=== PATIENT | male | born 1960 | race African-American/Black ===

== ENCOUNTER 2016-10-12 16:46 | Emergency (ER) | payer MEDICARE, MEDICAID ==
--- NOTE | 2016-10-12 18:56 | ER Document Report ---
ED General - General Chief Complaint: Knee Pain Stated Complaint: WEAKNESS Notes: Patient is a 56-year-old male with past medical history of end-stage renal disease with dialysis dependence who presents with several months of progressively worsening generalized weakness and increasingly frequent falls. Patient is a very poor historian but his sister at bedside states that his falls have become almost daily at this point for the last 3-4 months. Patient denies any focal weakness or numbness. Denies any focal pain. Nothing improves or worsens the symptoms. He has not seen his primary care physician regarding these concerns. His family the bedside admits that this is been a slow, progressive decline in the are considering placing him in a penitentiary facility. TRAVEL OUTSIDE OF THE [place] IN LAST 30 DAYS: No - Related Data Allergies/Adverse Reactions: No Known Allergies Allergy (Verified 08/24/16 15:42) Past Medical History - General Information source: Patient - Social History Smoking Status: Former Smoker Frequency of alcohol use: None Drug Abuse: None Lives with: Family Family History: Arthritis, CAD, CVA, DM, Hyperlipidemia, Hypertension, Malignancy - Past Medical History Cardiac Medical History: Reports: Hx Hypertension Endocrine Medical History: Reports: Hx Diabetes Mellitus Type 1, Hx Diabetes Mellitus Type 2 Renal/ Medical History: Reports: Hx End Stage Renal Disease, Hx Hemodialysis, Hx Renal Insufficiency Psychiatric Medical History: Reports: Hx Dementia, Hx Depression Past Surgical History: Reports: Hx Appendectomy, Hx Tonsillectomy, Hx Vascular Surgery - dialysis fistula left - Immunizations Immunizations up to date: Yes Hx Diphtheria, Pertussis, Tetanus Vaccination: Yes Hx Pneumococcal Vaccination: 07/04/13 Review of Systems - Review of Systems Notes: Constitutional: Negative for fever. HENT: Negative for sore throat. Eyes: Negative for visual changes. Cardiovascular: Negative for chest pain. Respiratory: Negative for shortness of breath. Gastrointestinal: Negative for abdominal pain, vomiting or diarrhea. Genitourinary: Negative for dysuria. Musculoskeletal: Negative for back pain. Skin: Negative for rash. Neurological: Negative for headaches, weakness or numbness. 10 point ROS negative except as marked above and in HPI. Physical Exam - Vital signs Vitals: Temp Pulse Resp BP Pulse Ox 97.4 F 70 20 154/83 H 99 10/12/16 17:01 10/12/16 17:01 10/12/16 17:01 10/12/16 17:01 10/12/16 17:01 Interpretation: Hypertensive Notes: PHYSICAL EXAMINATION: GENERAL: Appears older than stated age but in no acute distress HEAD: Atraumatic, normocephalic. EYES: Pupils equal round and reactive to light, extraocular movements intact, sclera anicteric, conjunctiva are normal. ENT: nares patent, oropharynx clear without exudates. Moderately dry mucous membranes. NECK: Normal range of motion, supple without lymphadenopathy LUNGS: Breath sounds clear to auscultation bilaterally and equal. No wheezes rales or rhonchi. HEART: Regular rate and rhythm without murmurs ABDOMEN: Soft, nontender, normoactive bowel sounds. No guarding, no rebound. No masses appreciated. EXTREMITIES: Normal range of motion, no pitting or edema. No cyanosis. NEUROLOGICAL: Face symmetric. Tongue protrudes midline. Extraocular motions intact. Pupils are 2 mm and equally reactive. Normal speech, hesitant gait but able to walk with a 1 person assist. 5 out of 5 strength in both the distal and proximal upper and lower extremities bilaterally. Sensation is grossly intact throughout. Finger to nose testing normal. Pronator drift normal. PSYCH: Normal mood, normal affect. SKIN: Warm, Dry, normal turgor, no rashes or lesions noted. Course - Re-evaluation Re-evalutation: 10/12/16 18:55 Presentation and an overall well-appearing patient in no acute distress who complains of generalized weakness. At time of evaluation, patient's vitals are within normal limits and they are denying any additional acute complaints. Physical examination without focal findings. No neurologic deficits. They deny any chest pain, shortness of breath, nausea, vomiting, or diarrhea. No fever. Basic laboratories are unremarkable. Low clinical suspicion for ACS, occult pneumonia, acute intra-abdominal pathology, stroke, or transient ischemic attack based on clinical history, examination, and laboratories. They have tolerated oral intake without difficulty. I have discussed the importance of close outpatient follow-up as well as the need to return to emergency room immediately should they have any new or worsening symptoms. The patient and surrogate's are in agreement with this plan and verbalized indications for return to emergency department. - Vital Signs Vital signs: Temp Pulse Resp BP Pulse Ox 97.6 F 70 19 136/113 H 99 10/12/16 21:14 10/12/16 17:01 10/12/16 21:01 10/12/16 21:01 10/12/16 21:01 - Laboratory Result Diagrams: 10/12/16 19:40 10/12/16 19:40 Laboratory results interpreted by me: 10/12/16 10/12/16 19:40 19:40 WBC 11.8 H RBC 3.62 L Hgb 11.4 L Hct 34.8 L RDW 15.7 H Seg Neutrophils % 81.1 H Lymphocytes % 11.9 L Absolute Neutrophils 9.6 H Sodium 131.7 L Potassium 3.4 L Chloride 97 L Carbon Dioxide 18 L BUN 21 H Creatinine 4.48 H Est GFR ( Amer) 16 L Est GFR (Non-Af Amer) 14 L Glucose 385 H Discharge - Discharge Clinical Impression: Frequent falls, Generalized weakness Condition: Good Disposition: HOME, SELF-CARE Additional Instructions: You need to follow-up with your primary care physician to begin discussing options for additional assistance given her progressive weakness and frequent falls. A referral to physical therapy would be appropriate. You may also want to consider nursing care options. These return if he developed frequent vomiting, focal weakness, numbness, chest pain, shortness of breath, or any other symptoms that are concerning to you.
[2016-10-12 19:54] LABS: ABSOLUTE EOSINOPHILS # (AUTO) 0.1 10^3/uL (0.0-0.6); ABSOLUTE LYMPHOCYTES (AUTO) 1.4 10^3/uL (0.5-4.7); ABSOLUTE MONOCYTES (AUTO) 0.7 10^3/uL (0.1-1.4); ABSOLUTE NEUT (AUTO) 9.6 10^3/uL (1.7-8.2); BASOPHILS % (AUTO) 0.3 % (0-2); HEMATOCRIT 34.8 % (37.9-51.0); HEMOGLOBIN 11.4 g/dL (13.5-17.0); HGB HCT DIFFERENCE -0.6; LYMPHOCYTES % (AUTO) 11.9 % (13-45); MEAN CORPUSCULAR HEMOGLOBIN 31.5 pg (27.0-33.4); MEAN CORPUSCULAR HGB CONC 32.8 g/dL (32.0-36.0); MEAN CORPUSCULAR VOLUME 96 fl (80-97); MONOCYTES % (AUTO) 5.7 % (3-13); RED BLOOD COUNT 3.62 10^6/uL (4.35-5.55); RED CELL DISTRIBUTION WIDTH 15.7 % (11.5-14.0); SEGMENTED NEUTROPHILS % (AUTO) 81.1 % (42-78); WHITE BLOOD COUNT 11.8 10^3/uL (4.0-10.5)
[2016-10-12 20:10] LABS: ANION GAP 17 (5-19); BLOOD UREA NITROGEN 21 mg/dL (7-20); CALCIUM 9.2 mg/dL (8.4-10.2); CARBON DIOXIDE 18 mmol/L (22-30); CHLORIDE 97 mmol/L (98-107); CREATININE RESULT 4.48 mg/dL (0.52-1.25); GLUCOSE 385 mg/dL (75-110); POTASSIUM 3.4 mmol/L (3.6-5.0); SODIUM 131.7 mmol/L (137-145)
[2016-10-12 21:24] VITALS: BP 136/113
== END 2016-10-12 21:35 | disposition home or self-care (01) ==
LOC: ER 16:46
DX: R53.1 Weakness (principal); E11.22 Type 2 diabetes mellitus with diabetic chronic kidney disease; I12.0 Hypertensive chronic kidney disease with stage 5 chronic kidney disease or end stage renal disease; N18.6 End stage renal disease; Z99.2 Dependence on renal dialysis; Z91.81 History of falling
CPT/HCPCS: 36415; 80048; 85025; 99285

== ENCOUNTER 2016-10-31 19:53 | Emergency (ER) | payer MEDICARE, MEDICAID ==
--- NOTE | 2016-10-31 20:57 | ER Document Report ---
ED Medical Screen (RME) - General Stated Complaint: FALL/HEAD PAIN Time seen by provider: 20:52 Mode of Arrival: Ambulatory Information source: Patient Notes: Patient states his legs have been giving out on him recently. He was in the bathroom and fell back against the wall, hit the back side of his head, slipped down to the floor landing on his left hip. Denies loss of consciousness, no vomiting or nausea. Family member with patient states he had dialysis today, has a history of diabetes, hypertension, denies heart problems. TRAVEL OUTSIDE OF THE [place] IN LAST 30 DAYS: No - Related Data Allergies/Adverse Reactions: No Known Allergies Allergy (Verified 08/24/16 15:42) Past Medical History - Past Medical History Cardiac Medical History: Reports: Hx Hypertension Endocrine Medical History: Reports: Hx Diabetes Mellitus Type 1, Hx Diabetes Mellitus Type 2 Renal/ Medical History: Reports: Hx End Stage Renal Disease, Hx Hemodialysis, Hx Renal Insufficiency Psychiatric Medical History: Reports: Hx Dementia, Hx Depression Past Surgical History: Reports: Hx Appendectomy, Hx Tonsillectomy, Hx Vascular Surgery - dialysis fistula left - Immunizations Immunizations up to date: Yes Hx Diphtheria, Pertussis, Tetanus Vaccination: Yes Physical Exam - Vital signs Vitals: Temp Pulse Resp BP Pulse Ox 97.9 F 74 18 173/67 H 99 10/31/16 20:46 10/31/16 20:46 10/31/16 20:46 10/31/16 20:46 10/31/16 20:46 - General General appearance: Appears well, Alert Notes: No hematoma or bruising noted to occipital area of head. Mild tenderness on palpation. - Cardiovascular Rhythm: Regular Heart sounds: Normal auscultation Course - Vital Signs Vital signs: Temp Pulse Resp BP Pulse Ox 97.9 F 74 18 173/67 H 99 10/31/16 20:46 10/31/16 20:46 10/31/16 20:46 10/31/16 20:46 10/31/16 20:46
[2016-10-31 21:29] LABS: ABSOLUTE EOSINOPHILS # (AUTO) 0.1 10^3/uL (0.0-0.6); ABSOLUTE MONOCYTES (AUTO) 0.4 10^3/uL (0.1-1.4)
[2016-10-31 21:39] LABS: ABSOLUTE LYMPHOCYTES (AUTO) 0.8 10^3/uL (0.5-4.7); ABSOLUTE NEUT (AUTO) 6.4 10^3/uL (1.7-8.2); BASOPHILS % (AUTO) 0.3 % (0-2); EOSINOPHILS % (AUTO) 0.9 % (0-6); HEMATOCRIT 34.3 % (37.9-51.0); HEMOGLOBIN 11.3 g/dL (13.5-17.0); HGB HCT DIFFERENCE -0.4; LYMPHOCYTES % (AUTO) 10.4 % (13-45); MEAN CORPUSCULAR HGB CONC 32.9 g/dL (32.0-36.0); RED BLOOD COUNT 3.41 10^6/uL (4.35-5.55); RED CELL DISTRIBUTION WIDTH 15.2 % (11.5-14.0); SEGMENTED NEUTROPHILS % (AUTO) 83.4 % (42-78); WHITE BLOOD COUNT 7.6 10^3/uL (4.0-10.5)
[2016-10-31 21:53] LABS: ALANINE AMINOTRANSFERASE 395 U/L (21-72); ALBUMIN 4.2 g/dL (3.5-5.0); ANION GAP 19 (5-19); ASPARTATE AMINO TRANSFERASE 253 U/L (17-59); BILIRUBIN,TOTAL 0.9 mg/dL (0.2-1.3); BLOOD UREA NITROGEN 36 mg/dL (7-20); CALCIUM 9.6 mg/dL (8.4-10.2); CARBON DIOXIDE 21 mmol/L (22-30); CHLORIDE 96 mmol/L (98-107); CREATINE KINASE 254 U/L (55-170); SODIUM 135.5 mmol/L (137-145); TOTAL PROTEIN 7.4 g/dL (6.3-8.2)
[2016-10-31 22:09] LABS: ALKALINE PHOSPHATASE 1643 U/L (38-126)
[2016-10-31 22:10] LABS: MEAN CORPUSCULAR VOLUME 101 fl (80-97)
[2016-10-31 22:16] LABS: GLUCOSE 634 mg/dL (75-110)
[2016-10-31 22:25] LABS: CREATINE KINASE MB 4.11 ng/mL (<4.55)
[2016-10-31 22:30] LABS: TROPONIN I 0.072 ng/mL
[2016-10-31] MEDS ORDERED: INSULIN REG, HUMAN 100 UNIT/ML 3 ML VIAL (PYX) IV ONE (23:16)
[2016-10-31] MEDS ORDERED: NORMAL SALINE 1000 ML 500 ML IV ONE (23:16)
[2016-10-31] MEDS ORDERED: POTASSIUM CHLORIDE 10 MEQ TABLET.SA PO ONE ×2 (23:17→23:18)
[2016-10-31] MEDS ORDERED: POTASSI CL 20 MEQ/50 ML RIDER 50 ML IV ONE (23:17)
--- NOTE | 2016-10-31 23:21 | ER Document Report ---
ED General - General Chief Complaint: Fall Stated Complaint: FALL/HEAD PAIN Mode of Arrival: Ambulatory Information source: Patient Notes: This is a 56-year-old male with a history of end-stage renal disease on hemodialysis also with insulin-dependent diabetes who presents stating he has had frequent falls over the past few weeks at home. Today he states that he was in the bathroom when he slipped and fell backwards. He hit the back of his head on the floor. He also complains of left hip pain after the fall. Of note he is been admitted to this facility before after falls with similar presentation secondary to hyperglycemia and noncompliance. He currently denies complaints other than the fact that he is hungry. TRAVEL OUTSIDE OF THE [place] IN LAST 30 DAYS: No - Related Data Allergies/Adverse Reactions: No Known Allergies Allergy (Verified 08/24/16 15:42) Past Medical History - General Information source: Patient - Social History Smoking Status: Current Every Day Smoker Chew tobacco use (# tins/day): No Frequency of alcohol use: None Drug Abuse: None Family History: Arthritis, CAD, CVA, DM, Hyperlipidemia, Hypertension, Malignancy Patient has suicidal ideation: No Patient has homicidal ideation: No - Past Medical History Cardiac Medical History: Reports: Hx Hypertension Endocrine Medical History: Reports: Hx Diabetes Mellitus Type 1, Hx Diabetes Mellitus Type 2 Renal/ Medical History: Reports: Hx End Stage Renal Disease, Hx Hemodialysis, Hx Renal Insufficiency. Denies: Hx Peritoneal Dialysis Psychiatric Medical History: Reports: Hx Dementia, Hx Depression Past Surgical History: Reports: Hx Appendectomy, Hx Tonsillectomy, Hx Vascular Surgery - dialysis fistula left - Immunizations Immunizations up to date: Yes Hx Diphtheria, Pertussis, Tetanus Vaccination: Yes Hx Pneumococcal Vaccination: 07/04/13 Review of Systems - Review of Systems Constitutional: denies: Chills, Fever EENT: denies: Eye pain, Nose congestion, Difficulty swallowing Cardiovascular: denies: Chest pain, Palpitations Respiratory: No symptoms reported. denies: Cough, Short of breath Gastrointestinal: No symptoms reported. denies: Abdominal pain, Diarrhea, Nausea, Vomiting Genitourinary: No symptoms reported Musculoskeletal: See HPI Skin: No symptoms reported Neurological/Psychological: No symptoms reported Physical Exam - Vital signs Vitals: Temp Pulse Resp BP Pulse Ox 97.9 F 74 18 173/67 H 99 10/31/16 20:46 10/31/16 20:46 10/31/16 20:46 10/31/16 20:46 10/31/16 20:46 - General General appearance: Appears well, Alert In distress: None Notes: thin male, somewhat disheveled and appears older than stated age - HEENT Head: Normocephalic, Atraumatic Eyes: No: Scleral icterus Conjunctiva: Normal Extraocular movements intact: Yes - Respiratory Respiratory status: No respiratory distress. No: Retractions Breath sounds: Normal. 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 His repeat lab evaluation reveals significant improvement in his hyperglycemia. His potassium is stable at 3.5. At this time there is no indication for hospital admission. He will be discharged home and is scheduled for dialysis tomorrow. We discussed dietary modification for his diabetes as he has a history of noncompliance. He will follow up with his primary care physician. Strict return precautions were discussed. He is comfortable with this plan. - Vital Signs Vital signs: Temp Pulse Resp BP Pulse Ox 98.2 F 78 16 168/74 H 98 11/01/16 07:14 11/01/16 07:14 11/01/16 07:14 11/01/16 07:14 11/01/16 07:14 - Laboratory Result Diagrams: 10/31/16 19:05 11/01/16 03:54 Laboratory results interpreted by me: 10/31/16 10/31/16 11/01/16 19:05 19:05 03:54 RBC 3.41 L Hgb 11.3 L Hct 34.3 L MCV 101 H D RDW 15.2 H Seg Neutrophils % 83.4 H Lymphocytes % 10.4 L Sodium 135.5 L 136.1 L Potassium 3.0 L* 3.5 L Chloride 96 L Carbon Dioxide 21 L 21 L BUN 36 H 40 H Creatinine 5.80 H 5.87 H Est GFR ( Amer) 12 L 12 L Est GFR (Non-Af Amer) 10 L 10 L Glucose 634 H* 238 H AST 253 H ALT 395 H Alkaline Phosphatase 1643 H Creatine Kinase 254 H Discharge - Discharge Clinical Impression: Hyperglycemia due to type 1 diabetes mellitus, End stage renal failure on dialysis, Hypokalemia Fall Qualifiers: Encounter type: initial encounter Qualified Code(s): W19.XXXA - Unspecified fall, initial encounter Condition: Stable Disposition: HOME, SELF-CARE Additional Instructions: DIABETES: It's very important that you follow through. Uncontrolled high blood sugar leads to early heart disease, strokes, nerve damage, eye damage, and kidney damage. All diabetics should follow a diet designed to control the blood sugar. Overweight diabetics should exercise regularly and lose weight. If this is not sufficient to control the blood sugar, pills or insulin shots are necessary. Younger people who develop diabetes almost always require insulin daily. Home testing of blood sugars or urine sugar is required. Diabetic teaching is available to help you figure insulin doses and monitor the blood sugar. Call the physician if there is faintness, excess sleepiness, or very rapid breathing. If hypoglycemia (LOW blood sugar) develops, symptoms are shakiness, weakness, sweating, and confusion. In this case, you should eat or drink something with sugar at once. FOLLOW-UP CARE: If you have been referred to a physician for follow-up care, call the physician s office for an appointment as you were instructed or within the next two days. If you experience worsening or a significant change in your symptoms, notify the physician immediately or return to the Emergency Department at any time for re-evaluation. Following your diabetic diet as instructed. Follow-up with your primary physician this week. Follow up for dialysis tomorrow as scheduled. Drink plenty of fluids. Return to the emergency department for fever or worsening symptoms or concerns. Referrals: ADIS PAZ DO [Primary Care Provider] - Follow up as needed
[2016-11-01 04:21] LABS: ANION GAP 16 (5-19); BLOOD UREA NITROGEN 40 mg/dL (7-20); CALCIUM 9.4 mg/dL (8.4-10.2); CARBON DIOXIDE 21 mmol/L (22-30); CHLORIDE 99 mmol/L (98-107); CREATININE RESULT 5.87 mg/dL (0.52-1.25); GLUCOSE 238 mg/dL (75-110); POTASSIUM 3.5 mmol/L (3.6-5.0); SODIUM 136.1 mmol/L (137-145)
[2016-11-01 07:15] VITALS: BP 168/74
--- NOTE | 2016-11-01 08:30 | EKG REPORT ---
SEVERITY:- ABNORMAL ECG - SINUS RHYTHM MULTIPLE ATRIAL PREMATURE COMPLEXES LVH WITH SECONDARY REPOLARIZATION ABNORMALITY LA ABNORMALITY. : Confirmed by: Alexei Shell MD 01-Nov-2016 08:28:57
== END 2016-11-01 07:21 | disposition home or self-care (01) ==
LOC: ER 19:53
DX: M25.552 Pain in left hip (principal); R51 Headache; W01.0XXA Fall on same level from slipping, tripping and stumbling without subsequent striking against object, initial encounter; Y92.002 Bathroom of unspecified non-institutional (private) residence as the place of occurrence of the external cause; I12.0 Hypertensive chronic kidney disease with stage 5 chronic kidney disease or end stage renal disease; E10.22 Type 1 diabetes mellitus with diabetic chronic kidney disease; E10.65 Type 1 diabetes mellitus with hyperglycemia; N18.6 End stage renal disease; Z99.2 Dependence on renal dialysis; F17.200 Nicotine dependence, unspecified, uncomplicated; E87.6 Hypokalemia
CPT/HCPCS: 93005; 99285; 96361; 96365; 96366; 36415; 82553; 82550; 85025; 80048; 80053; 84484; 71010; 73502; 70450; 93010; A9270 ×2; J3480; J7030; J1815

== ENCOUNTER 2016-11-14 09:49 | Inpatient (IN) | payer MEDICARE, MEDICAID ==
--- NOTE | 2016-11-14 10:35 | ER Document Report ---
ED General - General Chief Complaint: Altered Mental Status Stated Complaint: POSSIBLE STROKE Mode of Arrival: Medic Information source: Patient, Relative, Emergency Med Personnel Notes: 56 yr old male diabetic , hx of esrd presents with family ocncerns of altered mental status. pt found by family with blood sugar of 60, confused. concerns that he was not moving his left side initially. TRAVEL OUTSIDE OF THE [place] IN LAST 30 DAYS: No - HPI Onset: Just prior to arrival Onset/Duration: Sudden Quality of pain: No pain Severity: Mild Pain Level: Denies Associated symptoms: Weakness Exacerbated by: Denies Relieved by: Denies Similar symptoms previously: No Recently seen / treated by doctor: No - Related Data Allergies/Adverse Reactions: No Known Allergies Allergy (Verified 08/24/16 15:42) Past Medical History - Social History Smoking Status: Never Smoker Cigarette use (# per day): No Chew tobacco use (# tins/day): No Smoking Education Provided: No Family History: Arthritis, CAD, CVA, DM, Hyperlipidemia, Hypertension, Malignancy - Past Medical History Cardiac Medical History: Reports: Hx Hypertension Endocrine Medical History: Reports: Hx Diabetes Mellitus Type 1, Hx Diabetes Mellitus Type 2 Renal/ Medical History: Reports: Hx End Stage Renal Disease, Hx Hemodialysis, Hx Renal Insufficiency. Denies: Hx Peritoneal Dialysis Psychiatric Medical History: Reports: Hx Dementia, Hx Depression Past Surgical History: Reports: Hx Appendectomy, Hx Tonsillectomy, Hx Vascular Surgery - dialysis fistula left - Immunizations Immunizations up to date: Yes Hx Diphtheria, Pertussis, Tetanus Vaccination: Yes Hx Pneumococcal Vaccination: 07/04/13 Review of Systems - Review of Systems Notes: REVIEW OF SYSTEMS: CONSTITUTIONAL : Denies fever, chills, or sweats. Denies recent illness. EENT: Denies eye, ear, throat, or mouth pain or symptoms. Denies nasal or sinus congestion or discharge. Denies throat, tongue, or mouth swelling or difficulty swallowing. CARDIOVASCULAR: Denies chest pain. Denies palpitations or racing or irregular heart beat. Denies ankle edema. RESPIRATORY: Denies cough, cold, or chest congestion. Denies shortness of breath, difficulty breathing, or wheezing. GASTROINTESTINAL: Denies abdominal pain or distention. Denies nausea, vomiting , or diarrhea. Denies blood in vomitus, stools, or per rectum. Denies black, tarry stools. Denies constipation. GENITOURINARY: Denies difficulty urinating, painful urination, burning, frequency, blood in urine, or discharge. MUSCULOSKELETAL: Denies back or neck pain or stiffness. Denies joint pain or swelling. SKIN: Denies rash, lesions or sores. HEMATOLOGIC : Denies easy bruising or bleeding. LYMPHATIC: Denies swollen, enlarged glands. NEUROLOGICAL: Weakness PSYCHIATRIC: Denies anxiety or stress. Denies depression, suicidal ideation, or homicidal ideation. ALL OTHER SYSTEMS REVIEWED AND NEGATIVE. Dictation was performed using [employer] voice recognition software PHYSICAL EXAMINATION: GENERAL: Cachectic appearing male HEAD: Atraumatic, normocephalic. EYES: Pupils equal round and reactive to light, extraocular movements intact, sclera anicteric, conjunctiva are normal. ENT: Nares patent, oropharynx clear without exudates. Moist mucous membranes. NECK: Normal range of motion, supple without lymphadenopathy LUNGS: Breath sounds clear to auscultation bilaterally and equal. No wheezes rales or rhonchi. HEART: Regular rate and rhythm without murmurs ABDOMEN: Soft, nontender, nondistended abdomen. No guarding, no rebound. No masses appreciated. Musculoskeletal: Normal range of motion, no pitting or edema. No cyanosis. NEUROLOGICAL: Patient is alert and oriented to place and person but not to time PSYCH: Normal mood, normal affect. SKIN: Warm, Dry, normal turgor, no rashes or lesions noted. Physical Exam - Vital signs Vitals: Resp 12 11/14/16 10:07 Course - Re-evaluation Re-evalutation: 11/14/16 10:34 No acute hemorrhagic CVA noted, given that the confusion appears to be generalized I do not believe this to be an acute stroke rather altered mental status secondary to other causes. EKG noted no significant abnormality 11/14/16 12:58 pt noted ot have ckd on hemodyalisis, spoke with Dr Whitley who feels ocmfortable with admission with probably trop leak 11/14/16 12:59 Patient has no chest pain at all has not complained of any - Vital Signs Vital signs: Temp Pulse Resp BP Pulse Ox 98.2 F 15 119/102 H 97 11/14/16 10:10 11/14/16 11:00 11/14/16 10:10 11/14/16 10:19 - Laboratory Result Diagrams: 11/14/16 11:39 11/14/16 11:39 Laboratory results interpreted by me: 11/14/16 11/14/16 11/14/16 11:39 11:39 11:39 RBC 2.58 L Hgb 8.3 L Hct 25.1 L RDW 15.0 H Plt Count 42 L Seg Neuts % (Manual) 84 H Band Neutrophils % 10 H Lymphocytes % (Manual) 3 L Monocytes % (Manual) 1 L Metamyelocytes % 2 H Abs Neuts (Manual) 8.4 H Abs Lymphs (Manual) 0.3 L PT 18.2 H APTT 36.1 H Sodium 128.9 L Chloride 89 L Carbon Dioxide 20 L Anion Gap 20 H BUN 100 H Creatinine 7.40 H Est GFR ( Amer) 9 L Est GFR (Non-Af Amer) 8 L Glucose 175 H Total Bilirubin 5.5 H Direct Bilirubin 3.1 H AST 407 H ALT 159 H Alkaline Phosphatase 667 H CK-MB (CK-2) Albumin 3.1 L 11/14/16 11:39 RBC Hgb Hct RDW Plt Count Seg Neuts % (Manual) Band Neutrophils % Lymphocytes % (Manual) Monocytes % (Manual) Metamyelocytes % Abs Neuts (Manual) Abs Lymphs (Manual) PT APTT Sodium Chloride Carbon Dioxide Anion Gap BUN Creatinine Est GFR ( Amer) Est GFR (Non-Af Amer) Glucose Total Bilirubin Direct Bilirubin AST ALT Alkaline Phosphatase CK-MB (CK-2) 5.51 H Albumin - Diagnostic Test Radiology reviewed: Image reviewed, Reports reviewed - EKG Interpretation by Me EKG shows normal: Sinus rhythm, [place], Intervals, QRS Complexes Discharge - Discharge Clinical Impression: End stage renal failure on dialysis, Hyponatremia, Weakness, Elevated troponin level Hepatitis C Qualifiers: Viral hepatitis chronicity: unspecified Hepatic coma status: without hepatic coma Qualified Code(s): B19.20 - Unspecified viral hepatitis C without hepatic coma Condition: Fair Disposition: ADMITTED INPATIENT Admitting Provider: Hospitalist Unit Admitted: [facility]
[2016-11-14 11:47] LABS: HEMATOCRIT 25.1 % (37.9-51.0); HEMOGLOBIN 8.3 g/dL (13.5-17.0); HGB HCT DIFFERENCE -0.2; MEAN CORPUSCULAR HEMOGLOBIN 32.1 pg (27.0-33.4); RED BLOOD COUNT 2.58 10^6/uL (4.35-5.55); WHITE BLOOD COUNT 8.8 10^3/uL (4.0-10.5)
[2016-11-14 11:51] LABS: PROTHROMBIN TIME 18.2 SEC (11.4-15.4)
[2016-11-14 11:52] LABS: PARTIAL THROMBOPLASTIN TIME 36.1 SEC (23.5-35.8)
[2016-11-14 11:57] LABS: MEAN CORPUSCULAR VOLUME 97 fl (80-97)
[2016-11-14 12:06] LABS: ALANINE AMINOTRANSFERASE 159 U/L (21-72); ALBUMIN 3.1 g/dL (3.5-5.0); ALKALINE PHOSPHATASE 667 U/L (38-126); ASPARTATE AMINO TRANSFERASE 407 U/L (17-59); BILIRUBIN,DIRECT 3.1 mg/dL (0.0-0.3); BILIRUBIN,TOTAL 5.5 mg/dL (0.2-1.3); BLOOD UREA NITROGEN 100 mg/dL (7-20); CARBON DIOXIDE 20 mmol/L (22-30); CHLORIDE 89 mmol/L (98-107); CREATINE KINASE 162 U/L (55-170); GLUCOSE 175 mg/dL (75-110); POTASSIUM 3.8 mmol/L (3.6-5.0); SODIUM 128.9 mmol/L (137-145); TOTAL PROTEIN 6.6 g/dL (6.3-8.2)
[2016-11-14 12:14] LABS: BAND NEUTROPHILS % (MANUAL) 10 % (3-5); BASOPHILS % (MANUAL) 0 % (0-2); EOSINOPHILS % (MANUAL) 0 % (0-6); LYMPHOCYTES % (MANUAL) 3 % (13-45); TOTAL CELLS COUNTED 100
[2016-11-14 12:16] LABS: ANION GAP 20 (5-19); ANISOCYTOSIS SLIGHT; BURR CELLS 1+; OVALOCYTES SLIGHT; POIKILOCYTOSIS 1+; SCHISTOCYTES 1+; TARGET CELLS 1+
[2016-11-14 12:18] LABS: CREATINE KINASE MB 5.51 ng/mL (<4.55)
[2016-11-14 12:41] LABS: TROPONIN I 1.88 ng/mL
--- NOTE | 2016-11-14 14:44 | PDOC H&P ---
History of Present Illness Admission Date/PCP: ADIS PAZ DO Patient complains of: Altered mental status History of Present Illness: SUSANNE MEJIA is a 56 year old male Brought to the ED because of altered mental status Sister states that patient became weaker in the past 2 weeks over the past couple days patient has been extremely lethargic; difficult to arouse Patient missed his dialysis today He was brought to the ED was found extremely ill, lethargic responding to painful stimuli His labs show that elevated liver function tests and a low sodium He was diagnosed of hyponatremia; sepsis dehydration and likely acute on chronic cholecystitis He was subsequently admitted under hospitalist service to the intensive care unit Past Medical History Cardiac Medical History: Reports: Hypertension Endocrine Medical History: Reports: Diabetes Mellitus Type 1, Diabetes Mellitus Type 2 Renal/ Medical History: Reports: End Stage Renal Disease, Other - Chronic hemodialysis His physician is Dr. Fulton [facility] Medical History: Reports: Other - Chronic cholecystitis Chronic hepatitis C Psychiatric Medical History: Reports: Dementia, Depression Hematology: Reports: Anemia Infectious Medical History: Reports: Hepatitis C Past Surgical History Past Surgical History: Reports: Appendectomy, Tonsillectomy, Vascular Surgery - dialysis fistula left Social History Smoking Status: Never Smoker Frequency of Alcohol Use: None Hx Recreational Drug Use: No Drugs: None Hx Prescription Drug Abuse: No - Advance Directive Resuscitation Status: Full Code Surrogate healthcare decision maker:: His sister Family History Family History: Arthritis, CAD, CVA, DM, Hyperlipidemia, Hypertension, Malignancy Parental Family History Reviewed: Yes Children Family History Reviewed: Yes Sibling(s) Family History Reviewed.: Yes Medication/Allergy Home Medications: Diltiazem HCl [Diltiazem 24Hr Cd] 120 mg PO BID 10/29/13 Folic Acid 1 mg PO DAILY 10/29/13 Lisinopril 10 mg PO DAILY 10/29/13 Amlodipine Besylate [Norvasc 5 mg Tablet] 5 mg PO Q12HP PRN #30 tablet 08/26/16 Insulin Glargine,Hum.rec.anlog [Lantus Insulin 100 Unit/1 ml 10 ml] 10 unit SUBCUT DAILY #1 vial 08/26/16 Sevelamer Carbonate [Renvela] 08/26/16 Allergies/Adverse Reactions: No Known Allergies Allergy (Verified 08/24/16 15:42) Review of Systems ROS unobtainable: Due to mental status Eyes: PRESENT: visual disturbances - Sister states that his vision has been worse in the past 2 weeks to the point that she thinks he is almost blind at this time; he has not been seen by ophthalmology Physical Exam Vital Signs: Temp Pulse Resp BP Pulse Ox 98.8 F 80 11 L 119/75 98 11/14/16 13:35 11/14/16 13:24 11/14/16 14:01 11/14/16 14:01 11/14/16 14:01 General appearance: PRESENT: mild distress, thin, other - Looks extremely ill Head exam: PRESENT: atraumatic, normocephalic Eye exam: PRESENT: conjunctival injection, EOMI, PERRLA. ABSENT: scleral icterus Neck exam: ABSENT: carotid bruit, JVD, lymphadenopathy, thyromegaly Respiratory exam: PRESENT: clear to auscultation prema. ABSENT: rales, rhonchi, wheezes Cardiovascular exam: PRESENT: RRR. ABSENT: diastolic murmur, rubs, systolic murmur Pulses: PRESENT: normal dorsalis pedis pul GI/Abdominal exam: PRESENT: ascites - He, normal bowel sounds, soft. ABSENT: distended, guarding, mass, organolmegaly, rebound, tenderness Rectal exam: PRESENT: deferred Extremities exam: PRESENT: full ROM. ABSENT: calf tenderness, clubbing, pedal edema Neurological exam: PRESENT: altered, other - Unable to perform Results Laboratory Results: 11/14/16 11:39 11/14/16 11:39 11/14/16 11/14/16 11:39 11:39 WBC 8.8 RBC 2.58 L Hgb 8.3 L Hct 25.1 L MCV 97 D MCH 32.1 MCHC 33.0 RDW 15.0 H Plt Count 42 L Seg Neutrophils % Not Reportable Lymphocytes % Not Reportable Monocytes % Not Reportable Eosinophils % Not Reportable Basophils % Not Reportable Absolute Neutrophils Not Reportable Absolute Lymphocytes Not Reportable Absolute Monocytes Not Reportable Absolute Eosinophils Not Reportable Absolute Basophils Not Reportable Sodium 128.9 L Potassium 3.8 Chloride 89 L Carbon Dioxide 20 L Anion Gap 20 H BUN 100 H Creatinine 7.40 H Est GFR ( Amer) 9 L Est GFR (Non-Af Amer) 8 L Glucose 175 H Calcium 9.0 Total Bilirubin 5.5 H AST 407 H ALT 159 H Alkaline Phosphatase 667 H Total Protein 6.6 Albumin 3.1 L 11/14/16 11/14/16 11:39 11:39 Creatine Kinase 162 CK-MB (CK-2) 5.51 H Troponin I 1.880 EKG Comments: SINUS RHYTHM [APC] . ATRIAL PREMATURE COMPLEX [LVHPRE] . PROBABLE LVH WITH SECONDARY REPOL ABNRM Impressions: Chest X-Ray 11/14/16 00:00 IMPRESSION: Interval clearing of the lung meredith. Minimal residual right lung base. Head CT 11/14/16 00:00 IMPRESSION: No acute findings Assessment & Plan - Diagnosis (1) Elevated LFTs Is this a current diagnosis for this admission?: YesPlan: Likely to be secondary to chronic hepatitis C Patient has a history of acute on chronic cholecystitis and gallstone patient may have an acute cholecystitis and sepsis at this time We will order stat ultrasound of the right upper quadrant Cholecystostomy tube may be needed if patient has acute cholecystitis We will obtain also serum ammonia level (2) Cholestatic jaundice Is this a current diagnosis for this admission?: YesPlan: See above awaiting ultrasound of the right upper quadrant (3) Sepsis Qualifiers: Sepsis type: sepsis due to unspecified organism Qualified Code(s): A41.9 - Sepsis, unspecified organism Is this a current diagnosis for this admission?: YesPlan: Source may be acute cholecystitis We will initiate antibiotic management with Zosyn (4) Hyponatremia Is this a current diagnosis for this admission?: YesPlan: Patient is dehydrated We will hydrate with normal saline at 50 mm per hour (5) Elevated troponin Is this a current diagnosis for this admission?: YesPlan: Unlikely that the patient has an acute non-STEMI We will obtain serial troponins repeat EKG in a.m. Elevated troponin likely to be secondary to sepsis and dehydration (6) End stage renal failure on dialysis Is this a current diagnosis for this admission?: YesPlan: Case was discussed with Dr. Vale Dialysis scheduled in a.m. in ICU - Time Critical Time spent with patient: 35 or more minutes - Inpatient Certification Based on my medical assessment, after consideration of the patient's comorbidities, presenting symptoms, or acuity I expect that the services needed warrant INPATIENT care.: Yes I certify that my determination is in accordance with my understanding of Medicare's requirements for reasonable and necessary INPATIENT services [42 CFR 412.3e].: Yes Medical Necessity: Need Close Monitoring Due to Risk of Patient Decompensation, Need For IV Fluids, Need for IV Antibiotics
[2016-11-14] MEDS ORDERED: GLUCAGON,HUMAN RECOMB 1 MG INJ IM PRN (15:05)
[2016-11-14] MEDS ORDERED: DEXTROSE 40% GEL 15 GM TUBE PO PRN ×2 (15:05)
[2016-11-14] MEDS ORDERED: DEXTROSE 50%-WATER 25 GM/50 ML DISP.SYRIN IV PRN ×2 (15:05)
[2016-11-14] MEDS ORDERED: ASPIRIN 325 MG TABLET PO ONE (15:44)
[2016-11-14] MEDS: NORMAL SALINE 1000 ML 1,000 ML IV PRN ×2 (16:21→18:17)
--- NOTE | 2016-11-14 17:19 | EKG REPORT ---
SEVERITY:- ABNORMAL ECG - SINUS RHYTHM ATRIAL PREMATURE COMPLEX PROBABLE LVH WITH SECONDARY REPOL ABNRM : Confirmed by: Gisella Crespo MD 14-Nov-2016 17:18:57
[2016-11-14] MEDS ORDERED: ACETAMINOPHEN 650 MG SUPP.RECT PR PRN (17:54)
[2016-11-14] MEDS ORDERED: ACETAMINOPHEN 650 MG SUPP.RECT PR ONE (18:16)
[2016-11-14] MEDS: INSULIN REG, HUMAN 100 UNIT/ML 3 ML VIAL (PYX) SUBCUT PRN (18:35)
[2016-11-14] MEDS: PIPERACILLIN SODIUM/TAZOBACTAM 2.25 GM in NORMAL SALINE 50 ML IV SCH (21:23)
[2016-11-15] MEDS: NORMAL SALINE 1000 ML 1,000 ML IV PRN (00:42)
[2016-11-15] MEDS: INSULIN REG, HUMAN 100 UNIT/ML 3 ML VIAL (PYX) SUBCUT PRN (00:43)
[2016-11-15] MEDS ORDERED: NORMAL SALINE 500 ML IV ONE (06:00)
[2016-11-15 06:13] LABS: HEMOGLOBIN 8.3 g/dL (13.5-17.0); HGB HCT DIFFERENCE -0.1; MEAN CORPUSCULAR HEMOGLOBIN 31.8 pg (27.0-33.4); MEAN CORPUSCULAR HGB CONC 33.1 g/dL (32.0-36.0); MEAN CORPUSCULAR VOLUME 96 fl (80-97); RED CELL DISTRIBUTION WIDTH 15.2 % (11.5-14.0); WHITE BLOOD COUNT 13.9 10^3/uL (4.0-10.5)
[2016-11-15 06:31] LABS: ALANINE AMINOTRANSFERASE 227 U/L (21-72); ALBUMIN 2.9 g/dL (3.5-5.0); ALKALINE PHOSPHATASE 556 U/L (38-126); ASPARTATE AMINO TRANSFERASE 523 U/L (17-59); BILIRUBIN,DIRECT 4.8 mg/dL (0.0-0.3); BILIRUBIN,TOTAL 7.4 mg/dL (0.2-1.3); BLOOD UREA NITROGEN 116 mg/dL (7-20); GLUCOSE 46 mg/dL (75-110); TOTAL PROTEIN 6.3 g/dL (6.3-8.2)
[2016-11-15 06:50] LABS: BASOPHILS % (MANUAL) 0 % (0-2); EOSINOPHILS % (MANUAL) 0 % (0-6); LYMPHOCYTES % (MANUAL) 4 % (13-45); TOTAL CELLS COUNTED 100
[2016-11-15 06:55] LABS: ANISOCYTOSIS 1+; BURR CELLS 1+; POIKILOCYTOSIS 2+; TARGET CELLS 2+; TOXIC VACUOLATION PRESENT
[2016-11-15 07:36] LABS: CARBON DIOXIDE 19 mmol/L (22-30); CHLORIDE 93 mmol/L (98-107); SODIUM 132.9 mmol/L (137-145)
[2016-11-15 07:42] LABS: CREATININE RESULT 7.69 mg/dL (0.52-1.25)
[2016-11-15 07:44] LABS: ANION GAP 21 (5-19)
--- NOTE | 2016-11-15 07:57 | EKG REPORT ---
SEVERITY:- ABNORMAL ECG - SINUS RHYTHM ATRIAL PREMATURE COMPLEX LVH WITH SECONDARY REPOLARIZATION ABNORMALITY : Confirmed by: Gisella Crespo MD 15-Nov-2016 07:56:37
--- NOTE | 2016-11-15 08:03 | PDOC PROGRESS REPORT ---
Subjective Progress Note for:: 11/15/16 Subjective:: Patient there is severe in the intensive care unit He is hemodynamically stable although his blood pressures been running low at 105/50 He is undergoing dialysis at this time His blood cultures were positive for gram-positive cocci and vancomycin was added to his antibiotic management A gallbladder ultrasound was consistent with acute cholecystitis Patient is nonverbal in no respiratory distress he appears to be moving his 4 extremities There is drainage from both eyes Physical Exam Vital Signs: Temp Pulse Resp BP Pulse Ox 100.0 F 80 24 H 100/74 98 11/15/16 04:27 11/14/16 20:00 11/15/16 06:00 11/15/16 05:54 11/15/16 06:00 Intake & Output 11/14/16 11/15/16 11/16/16 00:59 00:59 00:59 Intake Total 1197 Output Total 0 0 Balance 0 1197 Weight 49.6 kg 51.5 kg General appearance: PRESENT: mild distress Head exam: PRESENT: atraumatic, normocephalic Eye exam: PRESENT: conjunctival injection, other - Purulent drainage from both eyes Mouth exam: PRESENT: dry mucosa, tongue midline Respiratory exam: PRESENT: clear to auscultation prema, decreased breath sounds. ABSENT: rales, rhonchi, wheezes Cardiovascular exam: PRESENT: RRR. ABSENT: diastolic murmur, rubs, systolic murmur Pulses: PRESENT: normal dorsalis pedis pul GI/Abdominal exam: ABSENT: guarding, organolmegaly, rebound, rigid Rectal exam: PRESENT: deferred Neurological exam: PRESENT: awake, other - Not verbal Skin exam: PRESENT: dry, intact, warm. ABSENT: cyanosis, rash Results Laboratory Results: 11/15/16 06:03 11/15/16 06:03 11/14/16 11/14/16 11/15/16 15:02 15:03 03:45 WBC Cancelled RBC Cancelled Hgb Cancelled Hct Cancelled MCV Cancelled MCH Cancelled MCHC Cancelled RDW Cancelled Plt Count Cancelled Seg Neutrophils % Cancelled Lymphocytes % Cancelled Monocytes % Cancelled Eosinophils % Cancelled Basophils % Cancelled Absolute Neutrophils Cancelled Absolute Lymphocytes Cancelled Absolute Monocytes Cancelled Absolute Eosinophils Cancelled Absolute Basophils Cancelled Sodium Potassium Chloride Carbon Dioxide Anion Gap BUN Creatinine Est GFR ( Amer) Est GFR (Non-Af Amer) Glucose Calcium Total Bilirubin AST ALT Alkaline Phosphatase Ammonia < 8.7 L Total Protein Albumin Lipase 15.4 L TSH 11/15/16 11/15/16 11/15/16 06:03 06:03 06:03 WBC 13.9 H RBC 2.60 L Hgb 8.3 L Hct 25.0 L MCV 96 MCH 31.8 MCHC 33.1 RDW 15.2 H Plt Count 24 L* Seg Neutrophils % Not Reportable Lymphocytes % Not Reportable Monocytes % Not Reportable Eosinophils % Not Reportable Basophils % Not Reportable Absolute Neutrophils Not Reportable Absolute Lymphocytes Not Reportable Absolute Monocytes Not Reportable Absolute Eosinophils Not Reportable Absolute Basophils Not Reportable Sodium 132.9 L Potassium 4.0 Chloride 93 L Carbon Dioxide 19 L Anion Gap 21 H BUN 116 H Creatinine 7.69 H Est GFR ( Amer) 9 L Est GFR (Non-Af Amer) 7 L Glucose 46 L Calcium 9.0 Total Bilirubin 7.4 H AST 523 H ALT 227 H Alkaline Phosphatase 556 H Ammonia Total Protein 6.3 Albumin 2.9 L Lipase TSH 2.88 11/14/16 11/14/16 11/15/16 15:03 21:12 06:03 Troponin I 1.690 1.850 1.730 EKG Comments: SINUS RHYTHM [APC] . ATRIAL PREMATURE COMPLEX [LVHREP] . LVH WITH SECONDARY REPOLARIZATION ABNORMALITY Impressions: Chest X-Ray 11/14/16 00:00 IMPRESSION: Interval clearing of the lung meredith. Minimal residual right lung base. Head CT 11/14/16 00:00 IMPRESSION: No acute findings Abdomen Ultrasound 11/14/16 14:51 IMPRESSION: 1. GALLSTONES. GALLBLADDER WALL THICKENING WITH PERICHOLECYSTIC FLUID CONCERNING FOR CHOLECYSTITIS. 2. CHRONIC MEDICAL RENAL DISEASE INVOLVING THE RIGHT KIDNEY. NO HYDRONEPHROSIS. Assessment & Plan - Diagnosis (1) Elevated LFTs Is this a current diagnosis for this admission?: Yes (2) Cholestatic jaundice Is this a current diagnosis for this admission?: Yes (3) Sepsis Qualifiers: Sepsis type: sepsis due to unspecified organism Qualified Code(s): A41.9 - Sepsis, unspecified organism Is this a current diagnosis for this admission?: Yes (4) Hyponatremia Is this a current diagnosis for this admission?: Yes (5) Elevated troponin Is this a current diagnosis for this admission?: YesPlan: EKG unchanged LVH The troponins are stable at 1.7- 1.8 An echocardiogram will be performed Cardiology consult obtained ? Is the patient candidate for surgery with elevated troponins ? Is it a troponin leak or is the patient having an acute non-STEMI (6) End stage renal failure on dialysis Is this a current diagnosis for this admission?: YesPlan: Patient is undergoing dialysis (7) Acute cholecystitis Is this a current diagnosis for this admission?: YesPlan: Continue Zosyn Surgical consult was placed for Dr. Naldo Pro will evaluate the patient for cholecystectomy (8) Gram-positive bacteremia Is this a current diagnosis for this admission?: YesPlan: Added vancomycin to the present antibiotic coverage (9) Thrombocytopenia Is this a current diagnosis for this admission?: YesPlan: Secondary to cirrhosis chronic hepatitis We will transfuse 2 units of platelets if patient goes to surgery (10) Prolonged INR Is this a current diagnosis for this admission?: YesPlan: Secondary to cirrhosis of the liver Patient to be transfused 2 units of FFP prior to surgery - Time Time Spent with patient: We will keep the patient nothing by mouth We discussed issues with the family If patient is not a candidate for cholecystectomy a cholecystostomy tube will be placed Time Spent with patient: 25-34 minutes
[2016-11-15] MEDS ORDERED: VANCOMYCIN HCL 750 MG in DEXTROSE 5%-WATER 250 ML IV ONE (09:00)
[2016-11-15] MEDS ORDERED: EPOETIN ALFA INJ 20000 UNIT/1 ML VIAL (RENAL) IV PRN (09:13)
[2016-11-15] MEDS: PIPERACILLIN SODIUM/TAZOBACTAM 2.25 GM in NORMAL SALINE 50 ML IV SCH ×2 (11:17→21:23)
[2016-11-15] MEDS: ERYTHROMYCIN 0.5% OPH OINTMENT 3.5 GM TUBE OU SCH ×2 (11:17→17:48)
--- NOTE | 2016-11-15 14:27 | PDOC TRANSFER SUMMARY ---
General Admission Date/PCP: 11/14/16 14:58 ADIS PAZ DO Admission Date: 11/14/16 Transfer Date: 11/15/16 Accepting Facility: [facility] Resuscitation Status: Full Code - Transfer Diagnosis (1) Elevated LFTs Is this a current diagnosis for this admission?: Yes (2) Cholestatic jaundice Is this a current diagnosis for this admission?: Yes (3) Sepsis Is this a current diagnosis for this admission?: Yes (4) Hyponatremia Is this a current diagnosis for this admission?: Yes (5) Elevated troponin Is this a current diagnosis for this admission?: Yes (6) End stage renal failure on dialysis Is this a current diagnosis for this admission?: Yes (7) Acute cholecystitis Is this a current diagnosis for this admission?: Yes (8) Gram-positive bacteremia Is this a current diagnosis for this admission?: Yes (9) Thrombocytopenia Is this a current diagnosis for this admission?: Yes (10) Prolonged INR Is this a current diagnosis for this admission?: Yes (11) Endocarditis Is this a current diagnosis for this admission?: Yes - Transfer Medications Home Medications: Diltiazem HCl [Diltiazem 24Hr Cd] 120 mg PO Q12 11/14/16 Folic Acid [Folvite 1 mg Tablet] 1 mg PO DAILY 11/14/16 Sevelamer Carbonate [Renvela] 800 mg PO MEALS 11/14/16 Transfer Medications: Current Medications Acetaminophen (Tylenol 650 Mg Supp) 650 mg NH Q4HP PRN PRN Reason: Temp > 100.4 Stop: 12/14/16 17:53 Dextrose (Dextrose Inj 50% Syringe (25 Gm/50 Ml)) 12.5 gm IV PRN PRN; Protocol PRN Reason: FOR BG 50-69 IN ALERT PATIENT Stop: 12/14/16 15:04 Dextrose (Dextrose Inj 50% Syringe (25 Gm/50 Ml)) 25 gm IV PRN PRN PRN Reason: Protocol Stop: 12/14/16 15:04 Epoetin Thony (Procrit Inj 20,000 Unit/1 Ml Vial (Renal)) 20,000 unit IV .DIALYSIS 11/15/16 PRN PRN Reason: THIS MED IS NOT "PRN" Stop: 11/15/16 23:59 Last Admin: 11/15/16 10:00 Dose: 20,000 unit Erythromycin (E-Mycin 0.5% Oph Ointment 3.5 Gm) 1 applic OU BID [facility] [place] Stop: 11/22/16 09:59 Last Admin: 11/15/16 11:17 Dose: 1 applic Glucagon (Glucagen Inj 1 Mg Vial) 1 mg IM PRN PRN; Protocol PRN Reason: Evaluate for BG < 70 Stop: 12/14/16 15:04 Glucose (Glutose 40% Gel 15 Gm Tube) 15 gm PO PRN PRN; Protocol PRN Reason: FOR BG 50-69 IN ALERT PATIENT Stop: 12/14/16 15:04 Glucose (Glutose 40% Gel 15 Gm Tube) 30 gm PO PRN PRN; Protocol PRN Reason: FOR BG < 50 IN ALERT PATIENT Stop: 12/14/16 15:04 Piperacillin Sod/Tazobactam (Sod 2.25 gm/ Sodium Chloride) 50 mls @ 100 mls/hr IV Q12 [facility] Stop: 11/21/16 21:59 Last Admin: 11/15/16 11:17 Dose: 2.25 gm Sodium Chloride (Nacl 0.9% 1000 Ml Iv Soln) 1,000 mls @ 50 mls/hr IV CONTINUOUS PRN PRN Reason: THIS MED IS NOT "PRN" Stop: 12/14/16 14:55 Last Admin: 11/15/16 00:42 Dose: 1,000 ml Insulin Human Regular (Humulin R (Pyxis) Insulin 100 Unit/Ml 3ml) 0 - 12 unit SUBCUT Q6HP PRN PRN Reason: Protocol Stop: 12/14/16 15:04 Last Admin: 11/15/16 00:43 Dose: 2 unit Sodium Chloride (Saline Flush 2.5 Ml Monoject Prefil Syrin) 2.5 ml IV Q8 [facility] Stop: 12/14/16 21:59 Last Admin: 11/15/16 13:22 Dose: 2.5 ml - Allergies Allergies/Adverse Reactions: No Known Allergies Allergy (Verified 08/24/16 15:42) - Diet/Activity Discharge Diet: Other (Comments) - NPO Hospital Course Hospital Course: SUSANNE MEJIA is a 56 year old male Brought to the ED because of altered mental status Sister states that patient became weaker in the past 2 weeks ; over the past couple days patient has been extremely lethargic; difficult to arouse Patient missed his dialysis today He was brought to the ED was found extremely ill, lethargic responding to painful stimuli His labs show that elevated liver function tests and a low sodium He was diagnosed of hyponatremia; sepsis dehydration and likely acute on chronic cholecystitis He was subsequently admitted under hospitalist service to the intensive care unit Upon initial evaluation patient was diagnosed of sepsis Sepsis thought to be secondary to gram-positive bacteremia as he had gram- positive cocci in the blood And acute on chronic cholecystitis Patient was found to have elevated liver enzymes; and cholestatic picture with elevated bilirubin and alkaline phosphatase An ultrasound of the right upper quadrant was consistent with acute cholecystitis MRCP did not show any stones in the common bile duct Surgical consult was obtained General surgeon Dr. Pro felt that patient should have surgery in a tertiary Center A cholecystostomy tube could not be placed as per IR as the gallbladder was contracted and difficult to access Patient was treated with Zosyn IV fluids and vancomycin was added when results of the blood culture showed gram-positive cocci An echocardiogram done today shows vegetation on the mitral valve suggestive of acute endocarditis Dialysis was performed this morning unfortunately his access got clotted and patient had only half treatment which had to be discontinued A trialysis catheter may be inserted prior to patient's transfer Patient has abnormal coagulation tests with prolonged INR at 1.4 and low platelet count at 25 This is likely secondary to chronic liver cirrhosis The platelet count was normal during his last admission DIC secondary to sepsis is likely D-dimer fibrinogen and FDP are pending Patient would be transferred to [facility] for further care when a bed is available Physical Exam Vital Signs: Temp Pulse Resp BP Pulse Ox 98.4 F 87 21 H 131/80 H 96 11/15/16 12:00 11/15/16 12:00 11/15/16 13:37 11/15/16 13:37 11/15/16 13:37 Intake & Output 11/14/16 11/15/16 11/16/16 00:59 00:59 00:59 Intake Total 1197 Output Total 0 0 Balance 0 1197 Weight 49.6 kg 51.5 kg General appearance: PRESENT: mild distress, thin Head exam: PRESENT: atraumatic, normocephalic Eye exam: PRESENT: conjunctiva pale, scleral icterus Ear exam: PRESENT: normal external ear exam Neck exam: ABSENT: carotid bruit, JVD, lymphadenopathy, thyromegaly Respiratory exam: PRESENT: tachypnea. ABSENT: accessory muscle use Cardiovascular exam: PRESENT: tachycardia Pulses: PRESENT: normal dorsalis pedis pul GI/Abdominal exam: PRESENT: normal bowel sounds, soft. ABSENT: distended, guarding, mass, organolmegaly, rebound, tenderness Rectal exam: PRESENT: deferred Neurological exam: PRESENT: other - obtunded Skin exam: PRESENT: dry, intact, warm. ABSENT: cyanosis, rash Results Laboratory Results: 11/15/16 06:03 11/15/16 06:03 11/14/16 11/14/16 11/15/16 15:02 15:03 03:45 WBC Cancelled RBC Cancelled Hgb Cancelled Hct Cancelled MCV Cancelled MCH Cancelled MCHC Cancelled RDW Cancelled Plt Count Cancelled Seg Neutrophils % Cancelled Lymphocytes % Cancelled Monocytes % Cancelled Eosinophils % Cancelled Basophils % Cancelled Absolute Neutrophils Cancelled Absolute Lymphocytes Cancelled Absolute Monocytes Cancelled Absolute Eosinophils Cancelled Absolute Basophils Cancelled Sodium Potassium Chloride Carbon Dioxide Anion Gap BUN Creatinine Est GFR ( Amer) Est GFR (Non-Af Amer) Glucose Calcium Total Bilirubin AST ALT Alkaline Phosphatase Ammonia < 8.7 L Total Protein Albumin Lipase 15.4 L TSH 11/15/16 11/15/16 11/15/16 06:03 06:03 06:03 WBC 13.9 H RBC 2.60 L Hgb 8.3 L Hct 25.0 L MCV 96 MCH 31.8 MCHC 33.1 RDW 15.2 H Plt Count 24 L* Seg Neutrophils % Not Reportable Lymphocytes % Not Reportable Monocytes % Not Reportable Eosinophils % Not Reportable Basophils % Not Reportable Absolute Neutrophils Not Reportable Absolute Lymphocytes Not Reportable Absolute Monocytes Not Reportable Absolute Eosinophils Not Reportable Absolute Basophils Not Reportable Sodium 132.9 L Potassium 4.0 Chloride 93 L Carbon Dioxide 19 L Anion Gap 21 H BUN 116 H Creatinine 7.69 H Est GFR ( Amer) 9 L Est GFR (Non-Af Amer) 7 L Glucose 46 L Calcium 9.0 Total Bilirubin 7.4 H AST 523 H ALT 227 H Alkaline Phosphatase 556 H Ammonia Total Protein 6.3 Albumin 2.9 L Lipase TSH 2.88 11/14/16 11/14/16 11/15/16 15:03 21:12 06:03 Troponin I 1.690 1.850 1.730 Labs- All tests 24 hr 11/14/16 11/14/16 11/14/16 15:02 15:03 15:03 WBC RBC Hgb Hct MCV MCH MCHC RDW Plt Count Total Counted Seg Neutrophils % Seg Neuts % (Manual) Band Neutrophils % Lymphocytes % Lymphocytes % (Manual) Monocytes % Monocytes % (Manual) Eosinophils % Eosinophils % (Manual) Basophils % Basophils % (Manual) Absolute Neutrophils Abs Neuts (Manual) Absolute Lymphocytes Abs Lymphs (Manual) Absolute Monocytes Abs Monocytes (Manual) Absolute Eosinophils Absolute Eos (Manual) Absolute Basophils Abs Basophils (Manual) Toxic Vacuolation Platelet Estimate Platelet Comment Poikilocytosis Anisocytosis Target Cells Schulter Cells Sodium Potassium Chloride Carbon Dioxide Anion Gap BUN Creatinine Est GFR ( Amer) Est GFR (Non-Af Amer) Glucose POC Glucose Calcium Total Bilirubin Direct Bilirubin AST ALT Alkaline Phosphatase Ammonia < 8.7 L Troponin I 1.690 Total Protein Albumin Lipase 15.4 L TSH Slides for Path Review 11/14/16 11/14/16 11/15/16 17:15 21:12 00:40 WBC RBC Hgb Hct MCV MCH MCHC RDW Plt Count Total Counted Seg Neutrophils % Seg Neuts % (Manual) Band Neutrophils % Lymphocytes % Lymphocytes % (Manual) Monocytes % Monocytes % (Manual) Eosinophils % Eosinophils % (Manual) Basophils % Basophils % (Manual) Absolute Neutrophils Abs Neuts (Manual) Absolute Lymphocytes Abs Lymphs (Manual) Absolute Monocytes Abs Monocytes (Manual) Absolute Eosinophils Absolute Eos (Manual) Absolute Basophils Abs Basophils (Manual) Toxic Vacuolation Platelet Estimate Platelet Comment Poikilocytosis Anisocytosis Target Cells Riddhi Cells Sodium Potassium Chloride Carbon Dioxide Anion Gap BUN Creatinine Est GFR ( Amer) Est GFR (Non-Af Amer) Glucose POC Glucose 293 H 182 H Calcium Total Bilirubin Direct Bilirubin AST ALT Alkaline Phosphatase Ammonia Troponin I 1.850 Total Protein Albumin Lipase TSH Slides for Path Review 11/15/16 11/15/16 11/15/16 03:45 06:03 06:03 WBC Cancelled RBC Cancelled Hgb Cancelled Hct Cancelled MCV Cancelled MCH Cancelled MCHC Cancelled RDW Cancelled Plt Count Cancelled Total Counted Seg Neutrophils % Cancelled Seg Neuts % (Manual) Band Neutrophils % Lymphocytes % Cancelled Lymphocytes % (Manual) Monocytes % Cancelled Monocytes % (Manual) Eosinophils % Cancelled Eosinophils % (Manual) Basophils % Cancelled Basophils % (Manual) Absolute Neutrophils Cancelled Abs Neuts (Manual) Absolute Lymphocytes Cancelled Abs Lymphs (Manual) Absolute Monocytes Cancelled Abs Monocytes (Manual) Absolute Eosinophils Cancelled Absolute Eos (Manual) Absolute Basophils Cancelled Abs Basophils (Manual) Toxic Vacuolation Platelet Estimate Cancelled Platelet Comment Poikilocytosis Anisocytosis Target Cells Riddhi Cells Sodium 132.9 L Potassium 4.0 Chloride 93 L Carbon Dioxide 19 L Anion Gap 21 H BUN 116 H Creatinine 7.69 H Est GFR ( Amer) 9 L Est GFR (Non-Af Amer) 7 L Glucose 46 L POC Glucose Calcium 9.0 Total Bilirubin 7.4 H Direct Bilirubin 4.8 H AST 523 H ALT 227 H Alkaline Phosphatase 556 H Ammonia Troponin I 1.730 Total Protein 6.3 Albumin 2.9 L Lipase TSH Slides for Path Review Cancelled 11/15/16 11/15/16 11/15/16 06:03 06:03 09:18 WBC 13.9 H RBC 2.60 L Hgb 8.3 L Hct 25.0 L MCV 96 MCH 31.8 MCHC 33.1 RDW 15.2 H Plt Count 24 L* Total Counted 100 Seg Neutrophils % Not Reportable Seg Neuts % (Manual) 75 Band Neutrophils % 19 H Lymphocytes % Not Reportable Lymphocytes % (Manual) 4 L Monocytes % Not Reportable Monocytes % (Manual) 2 L Eosinophils % Not Reportable Eosinophils % (Manual) 0 Basophils % Not Reportable Basophils % (Manual) 0 Absolute Neutrophils Not Reportable Abs Neuts (Manual) 13.1 H Absolute Lymphocytes Not Reportable Abs Lymphs (Manual) 0.6 Absolute Monocytes Not Reportable Abs Monocytes (Manual) 0.3 Absolute Eosinophils Not Reportable Absolute Eos (Manual) 0.0 Absolute Basophils Not Reportable Abs Basophils (Manual) 0.0 Toxic Vacuolation PRESENT Platelet Estimate Platelet Comment DECREASED Poikilocytosis 2+ Anisocytosis 1+ Target Cells 2+ Schulter Cells 1+ Sodium Potassium Chloride Carbon Dioxide Anion Gap BUN Creatinine Est GFR ( Amer) Est GFR (Non-Af Amer) Glucose POC Glucose 78 Calcium Total Bilirubin Direct Bilirubin AST ALT Alkaline Phosphatase Ammonia Troponin I Total Protein Albumin Lipase TSH 2.88 Slides for Path Review 11/14/16 11/15/16 21:12 06:03 Troponin I 1.850 1.730 11/14/16 21:12 Blood Culture - Preliminary Blood Gram Positive Cocci 11/14/16 11:35 Blood Culture - Preliminary Blood Gram Positive Cocci EKG Comments: SINUS RHYTHM [APC] . ATRIAL PREMATURE COMPLEX [LVHREP] . LVH WITH SECONDARY REPOLARIZATION ABNORMALITY Impressions: Head CT 11/14/16 00:00 IMPRESSION: No acute findings Abdomen Ultrasound 11/14/16 14:51 IMPRESSION: 1. GALLSTONES. GALLBLADDER WALL THICKENING WITH PERICHOLECYSTIC FLUID CONCERNING FOR CHOLECYSTITIS. 2. CHRONIC MEDICAL RENAL DISEASE INVOLVING THE RIGHT KIDNEY. NO HYDRONEPHROSIS. Abdomen MRI 11/15/16 09:07 IMPRESSION: Gallbladder contracted around multiple stones No intra or extrahepatic biliary ductal dilatation. No ductal filling defects worrisome for choledocholithiasis Pancreatic parenchymal changes and ductal changes likely from chronic remote prior pancreatitis Trace bilateral pleural effusions, small amount of ascites Plan Time Spent: Greater than 30 Minutes
[2016-11-15] MEDS ORDERED: MORPHINE SULFATE 10 MG/ML INJ ONE (14:31)
[2016-11-15] MEDS ORDERED: NORMAL SALINE 250 ML IV PRN ×2 (15:16)
[2016-11-15] MEDS ORDERED: MORPHINE SULFATE 10 MG/ML INJ IV ONE (16:00)
--- NOTE | 2016-11-15 16:14 | XCELERA REPORT ---
[address] [address] Transthoracic Echocardiogram Report Name: SUSANNE MEJIA Age: 56 yrs Gender: Male : 1960 Patient Status: Inpatient Patient Location: ICU\S\605\[id number]\A Study Date: 11/15/2016 02:06 PM Height: 69 in Weight: 113 lb BSA: 1.6 m2 Procedure: A complete two-dimensional transthoracic echocardiogram was performed (2D, M-mode, spectral and color flow Doppler). The study was technically adequate with some images being suboptimal in quality. Reason For Study: elevated troponins Ordering Physician: MONROE AUSTIN Performed By: Ayse Dhillon Interpretation Summary There is a large vegetation or mass on the mitral valve with echo lucent center. Also consider Thrombus/abscess. attached to anterior mitral leaflet. The left ventricular ejection fraction is normal. There is mild concentric left ventricular hypertrophy. Doppler measurements suggest pseudonormalized left ventricular relaxation, which is associated with grade II/IV or mild to moderate diastolic dysfunction Wall motion cannot be accurately commented on, but no definite regional wall motion abnormalities noted. The left ventricle is grossly normal size. The right ventricular systolic function is normal. The left atrium is mildly dilated. The right atrium is normal in size There is a mild amount of mitral regurgitation There is no mitral valve stenosis. There is no aortic valve stenosis No aortic regurgitation is present. There is a mild amount of tricuspid regurgitation There is moderate to severe pulmonary hypertension by echo Right ventricular systolic pressure is estimated to be elevated at 50- 60mmHg. Minimal pericardial effusion. MMode/2D Measurements \T\ Calculations RVDd: 2.5 cm LVIDd: 5.4 cmFS: 21.7 % Ao root diam: 2.8 cm IVSd: 1.1 cm LVIDs: 4.2 cmEDV(Teich): 142.0 ml LVPWd: 1.1 cmESV(Teich): 80.2 ml Ao root area: 6.2 cm2 EF(Teich): 43.5 % LA dimension: 4.1 cm LVOT diam: 1.8 cm LVOT area: 2.4 cm2 Doppler Measurements \T\ Calculations MV E max carlos: MV P1/2t max carlos: Ao V2 max: LV V1 max P.7 cm/sec 141.7 cm/sec 151.3 cm/sec 5.5 mmHg MV A max carlos: MV P1/2t: 59.8 msec Ao max PG: LV V1 max: 71.1 cm/sec MVA(P1/2t): 3.7 cm2 9.2 mmHg 117.5 cm/sec MV E/A: 2.0 MV dec slope: RODRIGUE(V,D): 1.9 cm2 693.5 cm/sec2 PA V2 max: TR max carlos: 67.2 cm/sec 373.5 cm/sec PA max PG: TR max P.8 mmHg 1.8 mmHg Left Ventricle The left ventricle is grossly normal size. There is mild concentric left ventricular hypertrophy. The left ventricular ejection fraction is normal. Doppler measurements suggest pseudonormalized left ventricular relaxation, which is associated with grade II/IV or mild to moderate diastolic dysfunction. Wall motion cannot be accurately commented on, but no definite regional wall motion abnormalities noted. Right Ventricle The right ventricle is grossly normal size. There is normal right ventricular wall thickness. The right ventricular systolic function is normal. Atria The right atrium is normal in size. The left atrium is mildly dilated. Interarterial septum not well visualized and not well dopplered. Cannot comment on ASD/PFO presence. Mitral Valve The mitral valve leaflets are sclerotic and show some degree of functional abnormality. There is a large vegetation or mass on the mitral valve. There is no mitral valve stenosis. There is a mild amount of mitral regurgitation. Aortic Valve The aortic valve is sclerotic and shows some degree of functional abnormality. There is no aortic valve stenosis. No aortic regurgitation is present. Tricuspid Valve The tricuspid valve is not well visualized, but is grossly normal. There is no tricuspid stenosis. There is a mild amount of tricuspid regurgitation. There is moderate to severe pulmonary hypertension by echo. Right ventricular systolic pressure is estimated to be elevated at 50-60mmHg. Pulmonic Valve The pulmonic valve is not well visualized. Great Vessels The aortic root is not well visualized but is probably normal size. The inferior vena cava appeared normal and decreased < 50% with respiration (RAP 10-15 mmHg). Effusions Minimal pericardial effusion. : MONROE AUSTIN > Tyler Chandler
--- NOTE | 2016-11-15 16:29 | PDOC CONSULTATION ---
Consultation Consult Date: 11/15/16 Attending physician:: MONROE AUSTIN Consult reason:: Assessment Dr. Clarke to see this patient to supervise dialysis will be in the hospital. History of Present Illness Admission Date/PCP: 11/14/16 14:58 ADIS PAZ DO History of Present Illness: SUSANNE MEJIA is a 56 year old male with history of end-stage renal disease, hepatitis B carrier, and anemia who was brought to the ED because of altered mental status. Sister states that patient became weaker in the past 2 weeks over the past couple days patient has been extremely lethargic; difficult to arouse. Patient missed his dialysis yesterday. He was brought to the ED was found extremely ill, lethargic responding to painful stimuli His labs show that elevated liver function tests and a low sodium. He was diagnosed of hyponatremia; sepsis dehydration and likely acute on chronic cholecystitis.He was subsequently admitted under hospitalist service to the intensive care unit. I saw the patient this morning around 9 AM during initiation of hemodialysis. We were having some issues with his AV graft. We did try our best to do dialysis, however despite giving him fluids, his AV graft clotted 15 minutes into dialysis. So because we don't have an access, dialysis had to be stopped. From nephrology standpoint he did not really need to be dialyzed today urgently given that his electrolytes are within acceptable limits and is not clinically fluid overload. Patient is severely thrombocytopenic and it will be difficult to urgently get a vascular access for dialysis. However we will need a vascular access for hemodialysis in the next few days. Although the patient is clinically volume depleted his repeat chest x-ray today showed the possibility of accumulating fluid in his lungs compared to his initial chest x- ray yesterday. He is still oxygenating well at this time. He was also given very cautious IV fluid hydration since admission yesterday until today. Patient's current working diagnosis is acute cholecystitis with cholestasis. Imaging study did not show any obstructive biliary pathology. He is also being treated for sepsis and possible DIC. Dr. Austin has spoken to [facility] for transfer but he on a waiting list. Past Medical History Cardiac Medical History: Reports: Hypertension-primary Endocrine Medical History: Reports: Diabetes Mellitus Type 2 Renal/ Medical History: Reports: End Stage Renal Disease, Secondary Hyperparathyroidism, Other - Chronic hemodialysis His physician is Dr. Fulton [facility] Medical History: Reports: Other - Chronic cholecystitis Chronic hepatitis C or B from a lot of records, history of pancreatitis Psychiatric Medical History: Reports: Dementia, Depression Infectious Medical History: Reports: Hepatitis B, Hepatitis C Hematology Medical History: Reports Anemia of Chronic Kidney Disease Past Surgical History Past Surgical History: Reports: Appendectomy, Dialysis Access Surgery AVF, Dialysis Access Surgery AVG, Tonsillectomy, Vascular Surgery - dialysis fistula left Social History Lives with: Family - Lives with his niece Smoking Status: Current Every Day Smoker Frequency of Alcohol Use: None Hx Recreational Drug Use: No Drugs: None Hx Prescription Drug Abuse: No - Advance Directive Resuscitation Status: Full Code Family History Family History: DM - Mother, Hypertension - Mother Parental Family History Reviewed: Yes Children Family History Reviewed: NA Sibling(s) Family History Reviewed.: Unknown Medication/Allergy Home Medications: Diltiazem HCl [Diltiazem 24Hr Cd] 120 mg PO Q12 11/14/16 Folic Acid [Folvite 1 mg Tablet] 1 mg PO DAILY 11/14/16 Sevelamer Carbonate [Renvela] 800 mg PO MEALS 11/14/16 Allergies/Adverse Reactions: No Known Allergies Allergy (Verified 08/24/16 15:42) Review of Systems ROS unobtainable: Due to mental status Physical Exam Vital Signs: Temp Pulse Resp BP Pulse Ox 98.9 F 85 16 117/76 100 11/15/16 14:00 11/15/16 14:00 11/15/16 15:07 11/15/16 15:07 11/15/16 15:07 Intake & Output 11/14/16 11/15/16 11/16/16 06:59 06:59 06:59 Intake Total 1197 Output Total 0 Balance 1197 Weight 51.5 kg Vital signs this morning when I saw him on dialysis: Blood pressure 109/70, heart rate of 90, respiratory rate of 25, oxygen saturation 100%. General appearance: PRESENT: no acute distress, other - Obtunded Head exam: PRESENT: atraumatic Eye exam: PRESENT: conjunctiva pale Mouth exam: PRESENT: dry mucosa Neck exam: PRESENT: full ROM. ABSENT: JVD Respiratory exam: PRESENT: decreased breath sounds, symmetrical, other - Course of breath sounds. ABSENT: accessory muscle use, crackles, rales, rhonchi, wheezes Cardiovascular exam: PRESENT: +S1, +S2. ABSENT: diastolic murmur, systolic murmur GI/Abdominal exam: PRESENT: diminished bowel sounds, organomegaly - Hepatomegaly , soft. ABSENT: ascites, guarding, rebound, tenderness Rectal exam: PRESENT: deferred Extremities exam: ABSENT: joint swelling, pedal edema Neurological exam: PRESENT: other - Eyes are open but no verbal output. He is obtunded Skin exam: PRESENT: dry, intact, warm. ABSENT: rash, skin tears Results Laboratory Results: 11/15/16 06:03 11/15/16 06:03 11/14/16 11/15/16 11/15/16 15:02 03:45 06:03 WBC Cancelled RBC Cancelled Hgb Cancelled Hct Cancelled MCV Cancelled MCH Cancelled MCHC Cancelled RDW Cancelled Plt Count Cancelled Seg Neutrophils % Cancelled Lymphocytes % Cancelled Monocytes % Cancelled Eosinophils % Cancelled Basophils % Cancelled Absolute Neutrophils Cancelled Absolute Lymphocytes Cancelled Absolute Monocytes Cancelled Absolute Eosinophils Cancelled Absolute Basophils Cancelled Sodium 132.9 L Potassium 4.0 Chloride 93 L Carbon Dioxide 19 L Anion Gap 21 H BUN 116 H Creatinine 7.69 H Est GFR ( Amer) 9 L Est GFR (Non-Af Amer) 7 L Glucose 46 L Calcium 9.0 Total Bilirubin 7.4 H AST 523 H ALT 227 H Alkaline Phosphatase 556 H Total Protein 6.3 Albumin 2.9 L Lipase 15.4 L TSH 11/15/16 11/15/16 06:03 06:03 WBC 13.9 H RBC 2.60 L Hgb 8.3 L Hct 25.0 L MCV 96 MCH 31.8 MCHC 33.1 RDW 15.2 H Plt Count 24 L* Seg Neutrophils % Not Reportable Lymphocytes % Not Reportable Monocytes % Not Reportable Eosinophils % Not Reportable Basophils % Not Reportable Absolute Neutrophils Not Reportable Absolute Lymphocytes Not Reportable Absolute Monocytes Not Reportable Absolute Eosinophils Not Reportable Absolute Basophils Not Reportable Sodium Potassium Chloride Carbon Dioxide Anion Gap BUN Creatinine Est GFR ( Amer) Est GFR (Non-Af Amer) Glucose Calcium Total Bilirubin AST ALT Alkaline Phosphatase Total Protein Albumin Lipase TSH 2.88 11/14/16 11/14/16 11/15/16 15:03 21:12 06:03 Troponin I 1.690 1.850 1.730 Impressions: Head CT 11/14/16 00:00 IMPRESSION: No acute findings Abdomen Ultrasound 11/14/16 14:51 IMPRESSION: 1. GALLSTONES. GALLBLADDER WALL THICKENING WITH PERICHOLECYSTIC FLUID CONCERNING FOR CHOLECYSTITIS. 2. CHRONIC MEDICAL RENAL DISEASE INVOLVING THE RIGHT KIDNEY. NO HYDRONEPHROSIS. Chest X-Ray 11/15/16 00:00 IMPRESSION: Trace bilateral pleural effusions with mild right perihilar airspace disease worrisome for edema or fluid overload. Abdomen MRI 11/15/16 09:07 IMPRESSION: Gallbladder contracted around multiple stones No intra or extrahepatic biliary ductal dilatation. No ductal filling defects worrisome for choledocholithiasis Pancreatic parenchymal changes and ductal changes likely from chronic remote prior pancreatitis Trace bilateral pleural effusions, small amount of ascites Assessment & Plan - Diagnosis (1) Acute cholecystitis Is this a current diagnosis for this admission?: YesPlan: Patient is being transferred to tertiary care for further management. Apparently Dr. Austin has called [facility]. (2) Cholestasis Is this a current diagnosis for this admission?: Yes (3) Encephalopathy Is this a current diagnosis for this admission?: Yes (4) Sepsis Qualifiers: Sepsis type: sepsis due to unspecified organism Qualified Code(s): A41.9 - Sepsis, unspecified organism Is this a current diagnosis for this admission?: YesPlan: Patient was given vancomycin and is currently on IV Zosyn and ceftriaxone per primary service. (5) Endocarditis Is this a current diagnosis for this admission?: Yes (6) End stage renal failure on dialysis Is this a current diagnosis for this admission?: YesPlan: Patient was dialyzed for about 50 minutes today but his AV graft clotted. We will have a vascular surgeon place a trialysis catheter for future dialysis while he is here in hospital. We will monitor the patient clinically and monitor his labs again tomorrow. If needed we might need to attempt to do dialysis again tomorrow. But currently there is no urgent indication to attempt any urgent dialysis again. (7) Hyponatremia Is this a current diagnosis for this admission?: Yes (8) Prolonged INR Is this a current diagnosis for this admission?: YesPlan: Consider DIC with sepsis. (9) Thrombocytopenia Is this a current diagnosis for this admission?: YesPlan: Consider DIC with sepsis. - Notes Notes: Case discussed with Dr. Austin earlier. Thank you very much for this consultation. I will follow the patient. I agree with transfer this patient to tertiary care facility for further management. - Time Time Spent: 50 to 70 Minutes
[2016-11-15] MEDS ORDERED: CEFTRIAXONE 2 GM/D5W RTU 2 GM/50 ML RTUPB IV SCH (18:00)
--- NOTE | 2016-11-15 20:53 | PDOC CONSULTATION ---
Consultation Consult Date: 11/15/16 Attending physician:: MONROE AUSTIN Consult reason:: Abnormal troponin I elevation History of Present Illness Admission Date/PCP: 11/14/16 14:58 ADIS PAZ DO Patient complains of: Patient noted to be confused and did not complain much. History of Present Illness: SUSANNE MEJIA is a 56 year old male with history of end-stage renal disease, hepatitis B carrier, and anemia who was brought to the ED because of altered mental status. Sister states that patient became weaker in the past 2 weeks over the past couple days patient has been extremely lethargic; difficult to arouse. Patient missed his dialysis yesterday. He was brought to the ED was found extremely ill, lethargic responding to painful stimuli His labs show that elevated liver function tests and a low sodium. He was diagnosed of hyponatremia; sepsis dehydration and likely acute on chronic cholecystitis.He was subsequently admitted under hospitalist service to the intensive care unit. When patient was seen he was getting hemodialysis. Patient was noted to have positive blood cultures. Subsequently a 2-D echo was ordered which was remarkably positive and abnormal. Please see actual report. Patient's current working diagnosis is acute cholecystitis with cholestasis. Imaging study did not show any obstructive biliary pathology. He is also being treated for sepsis and possible DIC. Patient now suspected to have infective endocarditis/abscess/mass/thrombus attached to the anterior mitral leaflet. Redundant cords also noted. Patient noted to have moderate to severe pulmonary hypertension on the echocardiogram Past Medical History Cardiac Medical History: Reports: Hypertension Endocrine Medical History: Reports: Diabetes Mellitus Type 1, Diabetes Mellitus Type 2 Renal/ Medical History: Reports: End Stage Renal Disease, Other - Chronic hemodialysis His physician is Dr. Fulton GI Medical History: Reports: Other - Chronic cholecystitis Chronic hepatitis C or B from a lot of records, history of pancreatitis Psychiatric Medical History: Reports: Dementia, Depression Hematology: Reports: Anemia Infectious Medical History: Reports: Hepatitis B, Hepatitis C Past Surgical History Past Surgical History: Reports: Appendectomy, Tonsillectomy, Vascular Surgery - dialysis fistula left Social History Information Source: Relative Lives with: Family - Lives with his niece Smoking Status: Current Every Day Smoker Frequency of Alcohol Use: None Hx Recreational Drug Use: No Drugs: None Hx Prescription Drug Abuse: No - Advance Directive Resuscitation Status: Full Code Family History Family History: Reviewed & Not Pertinent, Arthritis, CAD, CVA, DM, Hyperlipidemia, Hypertension, Malignancy Parental Family History Reviewed: Yes Children Family History Reviewed: Yes Sibling(s) Family History Reviewed.: Yes Medication/Allergy Home Medications: Diltiazem HCl [Diltiazem 24Hr Cd] 120 mg PO Q12 11/14/16 Folic Acid [Folvite 1 mg Tablet] 1 mg PO DAILY 11/14/16 Sevelamer Carbonate [Renvela] 800 mg PO MEALS 11/14/16 Allergies/Adverse Reactions: No Known Allergies Allergy (Verified 08/24/16 15:42) Review of Systems ROS unobtainable: Due to mental status Physical Exam Vital Signs: Temp Pulse Resp BP Pulse Ox 98.3 F 86 0 L 109/84 100 11/15/16 19:49 11/15/16 18:00 11/15/16 19:37 11/15/16 19:37 11/15/16 19:37 Intake & Output 11/14/16 11/15/16 11/16/16 06:59 06:59 06:59 Intake Total 1197 620 Output Total 0 0 Balance 1197 620 Weight 51.5 kg Exam: GENERAL: well-nourished and in no acute distress. Patient is alert but not oriented to place time or person. Elevation to is very lethargic to obtunded. HEAD: Atraumatic, normocephalic. EYES: Pupils equal round and reactive to light, extraocular movements intact, sclera anicteric, conjunctiva are normal. ENT: TMs normal, nares patent, oropharynx clear without exudates. Moist mucous membranes. No oral ulcerations or bleeding gums noted NECK: supple without lymphadenopathy or JVD. Trachea is central. No cervical or axillary lymphadenopathy noted. Carotids are 2+ LUNGS: Breath sounds bibasilar fine crackles at bases. No significant dullness noted. CHEST: Palpation of chest wall shows no significant chest wall tenderness. HEART: Ralph [employer], No PSH, 2/6 YASEMIN aortic area, 1/6 elmore systolic murmur mitral area, rubs or gallops. ABDOMEN: Soft, no significant tenderness appreciated, normoactive bowel sounds. No guarding, no rebound. No rigidity noted . No masses appreciated. EXTREMITIES: Pedal pulses are 1-2+, no calf tenderness noted, Trace + pedal edema noted. No clubbing or cyanosis. NEUROLOGICAL: Patient is alert but is not able to participate in neurological exam because of patient's current mental status PSYCH: Patient cannot participate in a neurologic and psych exam because of the patient's current mental status SKIN: No significant ecchymosis, rash, ulcerations or signs of pruritus noted. Skin turgor noted to be low MUSCULOSKELETAL EXAM: No significant joint swelling noted. Results Laboratory Results: 11/15/16 06:03 11/15/16 06:03 11/15/16 11/15/16 11/15/16 03:45 06:03 06:03 WBC Cancelled RBC Cancelled Hgb Cancelled Hct Cancelled MCV Cancelled MCH Cancelled MCHC Cancelled RDW Cancelled Plt Count Cancelled Seg Neutrophils % Cancelled Lymphocytes % Cancelled Monocytes % Cancelled Eosinophils % Cancelled Basophils % Cancelled Absolute Neutrophils Cancelled Absolute Lymphocytes Cancelled Absolute Monocytes Cancelled Absolute Eosinophils Cancelled Absolute Basophils Cancelled Sodium 132.9 L Potassium 4.0 Chloride 93 L Carbon Dioxide 19 L Anion Gap 21 H BUN 116 H Creatinine 7.69 H Est GFR ( Amer) 9 L Est GFR (Non-Af Amer) 7 L Glucose 46 L Calcium 9.0 Total Bilirubin 7.4 H AST 523 H ALT 227 H Alkaline Phosphatase 556 H Total Protein 6.3 Albumin 2.9 L TSH 2.88 Blood Type 11/15/16 11/15/16 06:03 15:32 WBC 13.9 H RBC 2.60 L Hgb 8.3 L Hct 25.0 L MCV 96 MCH 31.8 MCHC 33.1 RDW 15.2 H Plt Count 24 L* Seg Neutrophils % Not Reportable Lymphocytes % Not Reportable Monocytes % Not Reportable Eosinophils % Not Reportable Basophils % Not Reportable Absolute Neutrophils Not Reportable Absolute Lymphocytes Not Reportable Absolute Monocytes Not Reportable Absolute Eosinophils Not Reportable Absolute Basophils Not Reportable Sodium Potassium Chloride Carbon Dioxide Anion Gap BUN Creatinine Est GFR ( Amer) Est GFR (Non-Af Amer) Glucose Calcium Total Bilirubin AST ALT Alkaline Phosphatase Total Protein Albumin TSH Blood Type B POSITIVE 11/14/16 11/14/16 11/15/16 15:03 21:12 06:03 Troponin I 1.690 1.850 1.730 Impressions: Head CT 11/14/16 00:00 IMPRESSION: No acute findings Abdomen Ultrasound 11/14/16 14:51 IMPRESSION: 1. GALLSTONES. GALLBLADDER WALL THICKENING WITH PERICHOLECYSTIC FLUID CONCERNING FOR CHOLECYSTITIS. 2. CHRONIC MEDICAL RENAL DISEASE INVOLVING THE RIGHT KIDNEY. NO HYDRONEPHROSIS. Chest X-Ray 11/15/16 00:00 IMPRESSION: Trace bilateral pleural effusions with mild right perihilar airspace disease worrisome for edema or fluid overload. Abdomen MRI 11/15/16 09:07 IMPRESSION: Gallbladder contracted around multiple stones No intra or extrahepatic biliary ductal dilatation. No ductal filling defects worrisome for choledocholithiasis Pancreatic parenchymal changes and ductal changes likely from chronic remote prior pancreatitis Trace bilateral pleural effusions, small amount of ascites Assessment & Plan - Diagnosis (1) Elevated troponin Is this a current diagnosis for this admission?: YesPlan: This was the reason for consultation. Elevated troponin I is most likely related to metabolic problems, sepsis etc. do not feel patient is a candidate for heart catheterization at this point because of mental obtundation. However will recommend optimization of medical management for presumed underlying CAD. (2) End stage renal failure on dialysis Is this a current diagnosis for this admission?: YesPlan: Patient currently on dialysis. Patient has very low platelet count. Currently not bleeding. (3) Endocarditis Qualifiers: Endocarditis type: infective Is this a current diagnosis for this admission?: YesPlan: Patient has positive blood culture. 2-D echocardiogram is suggestive. Patient may need further evaluation with a transesophageal echocardiogram or cardiac MRI etc. Patient will benefit from tertiary care referral for infectious disease consultation, cardiac and cardiothoracic consultation. (4) Gram-positive bacteremia Is this a current diagnosis for this admission?: YesPlan: Recommended obtaining more blood cultures and sensitivity results (5) Thrombocytopenia Is this a current diagnosis for this admission?: YesPlan: Currently a severe problem. May need platelet transfusion. - Time Time Spent: 30 to 50 Minutes - CODE STATUS was discussed, patient remains full code. Surrogate decision-maker unchanged. Multiple medical problems were addressed.More than 50% of the time spent coordinating care, discussing management plans with involved caregivers. Management plans discussed with involved personnels. Medical decision making was of moderate complexity. Medications reviewed and adjusted accordingly: Yes
[2016-11-16 05:21] LABS: ALANINE AMINOTRANSFERASE 183 U/L (21-72); MAGNESIUM 1.9 mg/dL (1.6-2.3)
[2016-11-16 06:08] LABS: ALBUMIN 2.9 g/dL (3.5-5.0); ALKALINE PHOSPHATASE 537 U/L (38-126); ASPARTATE AMINO TRANSFERASE 256 U/L (17-59); BILIRUBIN,DIRECT 6.1 mg/dL (0.0-0.3); BILIRUBIN,TOTAL 9.4 mg/dL (0.2-1.3); CALCIUM 9.5 mg/dL (8.4-10.2); CARBON DIOXIDE 19 mmol/L (22-30); CHLORIDE 93 mmol/L (98-107); GLUCOSE 83 mg/dL (75-110); PHOSPHORUS 7.4 mg/dL (2.5-4.5); TOTAL PROTEIN 6.6 g/dL (6.3-8.2)
[2016-11-16 06:09] LABS: ANION GAP 21 (5-19)
[2016-11-16 06:16] LABS: SODIUM 132.5 mmol/L (137-145)
[2016-11-16 06:21] LABS: POTASSIUM 4.7 mmol/L (3.6-5.0)
[2016-11-16 06:28] LABS: CREATININE RESULT 7.26 mg/dL (0.52-1.25)
[2016-11-16 06:32] LABS: BAND NEUTROPHILS % (MANUAL) 20 % (3-5); BASOPHILS % (MANUAL) 0 % (0-2); EOSINOPHILS % (MANUAL) 0 % (0-6); LYMPHOCYTES % (MANUAL) 6 % (13-45); TOTAL CELLS COUNTED 100
[2016-11-16 06:34] LABS: ANISOCYTOSIS SLIGHT; HYPOCHROMASIA 1+; POIKILOCYTOSIS 1+; POLYCHROMASIA SLIGHT; TOXIC GRANULATION SLIGHT
[2016-11-16 06:35] LABS: BURR CELLS 1+; OVALOCYTES SLIGHT; SCHISTOCYTES SLIGHT; TEAR DROP CELLS SLIGHT
[2016-11-16 06:38] LABS: ABSOLUTE BASOPHILS # (AUTO) 0.1 10^3/uL (0.0-0.2); ABSOLUTE EOSINOPHILS # (AUTO) 0.1 10^3/uL (0.0-0.6); ABSOLUTE LYMPHOCYTES (AUTO) 1.6 10^3/uL (0.5-4.7); ABSOLUTE MONOCYTES (AUTO) 1.5 10^3/uL (0.1-1.4); ABSOLUTE NEUT (AUTO) 15.8 10^3/uL (1.7-8.2); BASOPHILS % (AUTO) 0.4 % (0-2); EOSINOPHILS % (AUTO) 0.6 % (0-6); HEMATOCRIT 22.7 % (37.9-51.0); HGB HCT DIFFERENCE 0.1; LYMPHOCYTES % (AUTO) 8.6 % (13-45); MEAN CORPUSCULAR HEMOGLOBIN 31.5 pg (27.0-33.4); MEAN CORPUSCULAR HGB CONC 33.6 g/dL (32.0-36.0); MEAN CORPUSCULAR VOLUME 94 fl (80-97); MONOCYTES % (AUTO) 7.9 % (3-13); RED BLOOD COUNT 2.42 10^6/uL (4.35-5.55); RED CELL DISTRIBUTION WIDTH 15.1 % (11.5-14.0); SEGMENTED NEUTROPHILS % (AUTO) 82.5 % (42-78); WHITE BLOOD COUNT 19.1 10^3/uL (4.0-10.5)
[2016-11-16 06:40] LABS: HEMOGLOBIN 7.6 g/dL (13.5-17.0)
[2016-11-16] MEDS ORDERED: DEXTROSE 5%-NORMAL SALINE 1,000 ML IV PRN (07:32)
--- NOTE | 2016-11-16 07:58 | PDOC PROGRESS REPORT ---
Subjective Progress Note for:: 11/16/16 Subjective:: Patient is somewhat tachypneic this morning responding to deep painful stimuli ; his blood pressure is still maintained without pressors He is awaiting transfer to tertiary center Trialysis catheter will be inserted later this morning; 2 units of platelets will be transfused before and during procedure a platelet count is only 30 Case was discussed with Dr. Aguirre vascular surgery Yesterday patient was diagnosed of endocarditis ; however large vegetation or mass radiolucent was visualized on echocardiogram Physical Exam Vital Signs: Temp Pulse Resp BP Pulse Ox 99.5 F 92 29 H 133/85 H 100 11/16/16 05:06 11/15/16 20:00 11/16/16 06:00 11/16/16 05:37 11/16/16 06:00 Intake & Output 11/15/16 11/16/16 11/17/16 00:59 00:59 00:59 Intake Total 1817 77 Output Total 0 0 0 Balance 0 1817 77 Weight 49.6 kg 51.5 kg 52.1 kg General appearance: PRESENT: mild distress, thin, other - Looks extremely ill Head exam: PRESENT: atraumatic, normocephalic Eye exam: PRESENT: conjunctiva pale, scleral icterus, other - Slight drainage both eyes Neck exam: ABSENT: carotid bruit, JVD, lymphadenopathy, thyromegaly Respiratory exam: PRESENT: decreased breath sounds, symmetrical. ABSENT: accessory muscle use, rhonchi Cardiovascular exam: PRESENT: tachycardia. ABSENT: diastolic murmur, rubs, systolic murmur Pulses: PRESENT: normal dorsalis pedis pul GI/Abdominal exam: PRESENT: normal bowel sounds, soft. ABSENT: distended, guarding, mass, organolmegaly, rebound, tenderness Rectal exam: PRESENT: deferred Extremities exam: PRESENT: full ROM. ABSENT: calf tenderness, clubbing, pedal edema Neurological exam: PRESENT: altered, other - Responding only to painful stimuli Results Laboratory Results: 11/16/16 05:44 11/16/16 05:44 11/15/16 11/15/16 11/16/16 06:03 15:32 05:44 WBC 19.1 H RBC 2.42 L Hgb 7.6 L Hct 22.7 L MCV 94 MCH 31.5 MCHC 33.6 RDW 15.1 H Plt Count 32 L Seg Neutrophils % 82.5 H Lymphocytes % 8.6 L Monocytes % 7.9 Eosinophils % 0.6 Basophils % 0.4 Absolute Neutrophils 15.8 H Absolute Lymphocytes 1.6 Absolute Monocytes 1.5 H Absolute Eosinophils 0.1 Absolute Basophils 0.1 Sodium 132.9 L Potassium 4.0 Chloride 93 L Carbon Dioxide 19 L Anion Gap 21 H BUN 116 H Creatinine 7.69 H Est GFR ( Amer) 9 L Est GFR (Non-Af Amer) 7 L Glucose 46 L Calcium 9.0 Phosphorus Magnesium Total Bilirubin 7.4 H AST 523 H ALT 227 H Alkaline Phosphatase 556 H Total Protein 6.3 Albumin 2.9 L Blood Type B POSITIVE 11/16/16 05:44 WBC RBC Hgb Hct MCV MCH MCHC RDW Plt Count Seg Neutrophils % Lymphocytes % Monocytes % Eosinophils % Basophils % Absolute Neutrophils Absolute Lymphocytes Absolute Monocytes Absolute Eosinophils Absolute Basophils Sodium 132.5 L Potassium 4.7 Chloride 93 L Carbon Dioxide 19 L Anion Gap 21 H BUN 138 H D Creatinine 7.26 H Est GFR ( Amer) 9 L Est GFR (Non-Af Amer) 8 L Glucose 83 Calcium 9.5 Phosphorus 7.4 H Magnesium 1.9 Total Bilirubin 9.4 H AST 256 H ALT 183 H Alkaline Phosphatase 537 H Total Protein 6.6 Albumin 2.9 L Blood Type 11/14/16 11/14/16 11/15/16 15:03 21:12 06:03 Troponin I 1.690 1.850 1.730 Impressions: Head CT 11/14/16 00:00 IMPRESSION: No acute findings Abdomen Ultrasound 11/14/16 14:51 IMPRESSION: 1. GALLSTONES. GALLBLADDER WALL THICKENING WITH PERICHOLECYSTIC FLUID CONCERNING FOR CHOLECYSTITIS. 2. CHRONIC MEDICAL RENAL DISEASE INVOLVING THE RIGHT KIDNEY. NO HYDRONEPHROSIS. Chest X-Ray 11/15/16 00:00 IMPRESSION: Trace bilateral pleural effusions with mild right perihilar airspace disease worrisome for edema or fluid overload. Abdomen MRI 11/15/16 09:07 IMPRESSION: Gallbladder contracted around multiple stones No intra or extrahepatic biliary ductal dilatation. No ductal filling defects worrisome for choledocholithiasis Pancreatic parenchymal changes and ductal changes likely from chronic remote prior pancreatitis Trace bilateral pleural effusions, small amount of ascites Assessment & Plan - Diagnosis (1) Elevated LFTs Is this a current diagnosis for this admission?: YesPlan: Bilirubin is higher today 11/16/16 05:44 Total Bilirubin 9.4 H Direct Bilirubin 6.1 H AST 256 H ALT 183 H Alkaline Phosphatase 537 H Patient does have acute on chronic cholecystitis and hepatitis C ;there was evidence of common bile duct stone on MRI of the abdomen (2) Cholestatic jaundice Is this a current diagnosis for this admission?: Yes (3) Sepsis Qualifiers: Sepsis type: sepsis due to unspecified organism Qualified Code(s): A41.9 - Sepsis, unspecified organism Is this a current diagnosis for this admission?: YesPlan: Gram-positive bacteremia ; identification and sensitivity are pending Sepsis secondary to acute cholecystitis likely; or secondary to infected dialysis access Sepsis secondary to endocarditis Continue present antibiotic management Patient is currently on ceftriaxone Zosyn and vancomycin Ceftriaxone was added yesterday to cover for E faecalis Patient's white blood count is still high; but he remains hemodynamically stable 11/16/16 05:44 WBC 19.1 H (4) Hyponatremia Is this a current diagnosis for this admission?: YesPlan: Mild hyponatremia secondary to dehydration Has improved (5) Elevated troponin Is this a current diagnosis for this admission?: YesPlan: Troponins are in the 1.6-1.8 range There was no change on EKG Elevated troponins likely to be secondary to sepsis; (6) End stage renal failure on dialysis Is this a current diagnosis for this admission?: YesPlan: the access was lost yesterday A trialysis catheter will be placed later this morning after platelet transfusion Patient had dialysis yesterday; he does not appear fluid overloaded at this time and potassium is stable Repeat dialysis scheduled for tomorrow (7) Acute cholecystitis Is this a current diagnosis for this admission?: Yes (8) Gram-positive bacteremia Is this a current diagnosis for this admission?: Yes (9) Thrombocytopenia Is this a current diagnosis for this admission?: Yes (10) Prolonged INR Is this a current diagnosis for this admission?: Yes (11) Endocarditis Qualifiers: Endocarditis type: infective Is this a current diagnosis for this admission?: YesPlan: Patient will need MAT and cardiothoracic evaluation Continue antibiotics until identification and sensitivity are available (12) DIC (disseminated intravascular coagulation) Is this a current diagnosis for this admission?: YesPlan: follow up fibrinogen FDP platelet count Patient to be transfused 2 units of platelets prior to trialysis catheter insertion - Time Time Spent with patient: Patient's condition is critical at this time Critical Time spent with patient: 25-34 minutes
[2016-11-16 08:20] LABS: BAND NEUTROPHILS % (MANUAL) 19 % (3-5)
--- NOTE | 2016-11-16 10:33 | CONSULTATION REPORT E ---
Consultation Report NAME: SUSANNE MEJIA : 1960 AGE: 56Y DATE: 11/15/2016 605 A TO: DELVIS POWERS M.D. FROM: Requesting Physician ADDENDUM 2. Elevated liver function tests, possibly secondary to common bile duct and an MRCP will be obtained to rule out any stones or blockage that may be present in the biliary tree. This probably is related to his hepatitis C and possible liver cirrhosis. PLAN: 1. MRCP to rule out common bile duct stones. 2. If concerned about acute cholecystitis is still present, then consideration to transfer out and have a cholecystostomy tube placed as he is a prohibitive surgical candidate. DICTATING PHYSICIAN: DELVIS POWERS M.D. [id number] PHY#: [id number] ID: [id number] JOB#: [id number] ACCT: [id number] cc:DELVIS POWERS M.D. >
[2016-11-16] MEDS: PIPERACILLIN SODIUM/TAZOBACTAM 2.25 GM in NORMAL SALINE 50 ML IV SCH (10:43)
[2016-11-16] MEDS: ERYTHROMYCIN 0.5% OPH OINTMENT 3.5 GM TUBE OU SCH (10:44)
[2016-11-16 12:38] VITALS: BP 127/84
--- NOTE | 2016-11-16 13:39 | Operative Report ---
Operative Report DATE OF SURGERY: 11/16/16 PREOPERATIVE DIAGNOSIS: #1 end-stage renal disease on hemodialysis. #2 liver failure. #3 multiple comorbidities. POSTOPERATIVE DIAGNOSIS: #1 end-stage renal disease on hemodialysis. #2 liver failure. #3 multiple comorbidities. OPERATION: #1 ultrasound evaluation of the right femoral vein. #2 insertion of tryalysis hemodialysis catheter via real-time access in the right femoral vein. SURGEON: HERBERT GAYLE HOSTEL PARENT: none ANESTHESIA: Local TISSUE REMOVED OR ALTERED: None COMPLICATIONS: None ESTIMATED BLOOD LOSS: 2 mL. INTRAOPERATIVE FINDINGS: Of a satisfactory femoral vein to accept catheter easily 2 cm in diameter. Easy egress of blood and ingress of saline solution through all 3 ports. PROCEDURE: After obtaining informed consent, the patient was positioned supine at bedside. The left groin and adjacent areas] were prepared with chlorhexidine and draped out with sterile linen. After the universal timeout the procedure commenced. A steriley sheathed ultrasound probe was used to evaluate the right femoral vein. Local anesthesia was infiltrated adjacent to the probe. Access into the right femoral was accomplished using a micropuncture needle followed, by micropuncture wire and then with a micropuncture catheter. This was followed by introduction of a 0.035 guidewire, the skin opening was enlarged slightly, serially larger dilators were now placed followed by introduction of a triaysis catheter. All of these transitions were smooth. Each lumen was aspirated of blood and irrigated with heparinized solution. The catheter was now sutured to the skin using 3-0 nylon. A Bio A patch was now applied, followed by sterile dressings. Caps were placed on the end of the each of the lumens. The procedure concluded. Copies dictated operative report to Dr. Herbert Aguirre MD.
[2016-11-16 22:45] LABS: PATH REVIEW PATHOLOGIST REVIEWED
[2016-11-17 08:22] LABS: BLOOD UREA NITROGEN 138 mg/dL (7-20)
--- NOTE | 2016-11-17 11:25 | PDOC PROGRESS REPORT ---
Subjective Progress Note for:: 11/16/16 Subjective:: Patient seems to be worse today being less responsive. He is only responsive to painful stimuli. He is noted to be short of breath. His vitals are noted to be stable except for being tachypneic. He is noted to have low-grade fever. It to have sinus tachycardia. Physical Exam Vital Signs: Temp Pulse Resp BP Pulse Ox 98.5 F 83 18 127/84 H 100 11/16/16 12:32 11/16/16 12:32 11/16/16 12:32 11/16/16 12:32 11/16/16 12:32 Intake & Output 11/15/16 11/16/16 11/17/16 06:59 06:59 06:59 Intake Total 1197 697 484 Output Total 0 0 Balance 1197 697 484 Weight 51.5 kg 52.1 kg Exam: GENERAL: well-nourished and in no acute distress. Patient is intubated and sedated. Orientation cannot be checked HEAD: Atraumatic, normocephalic. EYES: Pupils equal round and reactive to light, extraocular movements could not be checked, sclera anicteric, conjunctiva are normal. ENT: TMs normal, nares patent, oropharynx clear without exudates. Moist mucous membranes. No oral ulcerations or bleeding gums noted NECK: supple without lymphadenopathy or JVD. Trachea is central. No cervical or axillary lymphadenopathy noted. Carotids are 2+ LUNGS: Breath sounds mostly clear to auscultation patient is noted to have bibasal crackles at the extreme bases CHEST: Palpation of the chest wall shows no significant chest wall tenderness or abnormalities. 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 ABDOMEN: Soft, no significant tenderness appreciated, normoactive bowel sounds. No guarding, no rebound. No rigidity noted . No masses appreciated. EXTREMITIES: Pedal pulses are 1-2+, no calf tenderness noted, 1+ pedal edema noted. No clubbing or cyanosis. NEUROLOGICAL: The patient cannot participate in the neurological exam but no facial asymmetry noted. Extremities slightly hypotonic PSYCH: This cannot be evaluated. Patient cannot participate. SKIN: No significant ecchymosis, rash, or signs of pruritus noted. MUSCULOSKELETAL EXAM: No significant joint swelling noted. Patient cannot participate in musculoskeletal exam Results Laboratory Results: 11/16/16 05:44 11/16/16 05:44 11/15/16 11/15/16 11/16/16 06:03 15:32 05:44 WBC 13.9 H 19.1 H RBC 2.60 L 2.42 L Hgb 8.3 L 7.6 L Hct 25.0 L 22.7 L MCV 96 94 MCH 31.8 31.5 MCHC 33.1 33.6 RDW 15.2 H 15.1 H Plt Count 24 L* 32 L Seg Neutrophils % 82.5 H Lymphocytes % 8.6 L Monocytes % 7.9 Eosinophils % 0.6 Basophils % 0.4 Absolute Neutrophils 15.8 H Absolute Lymphocytes 1.6 Absolute Monocytes 1.5 H Absolute Eosinophils 0.1 Absolute Basophils 0.1 Sodium Potassium Chloride Carbon Dioxide Anion Gap BUN Creatinine Est GFR ( Amer) Est GFR (Non-Af Amer) Glucose Lactic Acid Calcium Phosphorus Magnesium Total Bilirubin AST ALT Alkaline Phosphatase Total Protein Albumin Blood Type B POSITIVE 11/16/16 11/16/16 05:44 09:16 WBC RBC Hgb Hct MCV MCH MCHC RDW Plt Count Seg Neutrophils % Lymphocytes % Monocytes % Eosinophils % Basophils % Absolute Neutrophils Absolute Lymphocytes Absolute Monocytes Absolute Eosinophils Absolute Basophils Sodium 132.5 L Potassium 4.7 Chloride 93 L Carbon Dioxide 19 L Anion Gap 21 H BUN 138 H D Creatinine 7.26 H Est GFR ( Amer) 9 L Est GFR (Non-Af Amer) 8 L Glucose 83 Lactic Acid 1.6 Calcium 9.5 Phosphorus 7.4 H Magnesium 1.9 Total Bilirubin 9.4 H AST 256 H ALT 183 H Alkaline Phosphatase 537 H Total Protein 6.6 Albumin 2.9 L Blood Type 11/14/16 11/14/16 11/15/16 15:03 21:12 06:03 Troponin I 1.690 1.850 1.730 Impressions: Head CT 11/14/16 00:00 IMPRESSION: No acute findings Abdomen Ultrasound 11/14/16 14:51 IMPRESSION: 1. GALLSTONES. GALLBLADDER WALL THICKENING WITH PERICHOLECYSTIC FLUID CONCERNING FOR CHOLECYSTITIS. 2. CHRONIC MEDICAL RENAL DISEASE INVOLVING THE RIGHT KIDNEY. NO HYDRONEPHROSIS. Chest X-Ray 11/15/16 00:00 IMPRESSION: Trace bilateral pleural effusions with mild right perihilar airspace disease worrisome for edema or fluid overload. Abdomen MRI 11/15/16 09:07 IMPRESSION: Gallbladder contracted around multiple stones No intra or extrahepatic biliary ductal dilatation. No ductal filling defects worrisome for choledocholithiasis Pancreatic parenchymal changes and ductal changes likely from chronic remote prior pancreatitis Trace bilateral pleural effusions, small amount of ascites Assessment & Plan - Diagnosis (1) Elevated troponin Is this a current diagnosis for this admission?: Yes (2) End stage renal failure on dialysis Is this a current diagnosis for this admission?: Yes (3) Endocarditis Qualifiers: Endocarditis type: infective Is this a current diagnosis for this admission?: Yes (4) Gram-positive bacteremia Is this a current diagnosis for this admission?: Yes (5) Thrombocytopenia Is this a current diagnosis for this admission?: Yes - Notes Notes: Patient seems to have gotten worse with multisystem problems. Patient noted to have significant LFT abnormalities, coagulation abnormalities, severe thrombocytopenia, end-stage renal disease. Patient would need tertiary care with all different subspecialties involved. Patient probably would need a transesophageal echocardiogram and also cardiothoracic consultation. Elevated Troponin I is related to metabolic problems and sepsis rather than acute coronary syndrome. Agree with antibiotic therapy for presumed endocarditis and sepsis. Patient had a dialysis catheter placed this morning. Patient has been now accepted to [facility] for further evaluation and management. Overall prognosis is poor. - Time Time with patient: Greater than 35 minutes - Chart reviewed. Labs reviewed. discussed with hospitalist Medications reviewed and adjusted accordingly: Yes
--- NOTE | 2016-11-18 21:12 | CONSULT/HISTORY AND PHYSICAL E ---
Consultation/History and Physical PATIENT NAME: SUSANNE MEJIA : 1960 AGE: 56Y DATE: 11/15/2016 ROOM: 605 REFERRING PROVIDER: Dr. Whitley REASON FOR REFERRAL: Abnormal ultrasound of the gallbladder. HISTORY OF PRESENT ILLNESS: The patient is a 56-year-old male who was admitted to the hospital because of altered mental status. He has multiple medical problems including endstage renal disease on hemodialysis, diabetes, hypertension, dementia, depression, hepatitis C. He is being treated in the intensive care unit. Surgical consult was obtained because of possible acute versus chronic cholecystitis. He has been seen for this in the past during previous hospitalizations here. The last time was approximately 3 months go, where he had an ultrasound showing gallbladder gallstones and a thickened gallbladder wall with fluid. He had a hepatobiliary scan, which showed nonvisualization of the gallbladder. At that time, he was not symptomatic with the gallbladder not having any pain. It was recommended that if he had any evidence of infection or problems then a cholecystostomy tube would be recommended as his health status makes him a prohibitive surgical candidate. As stated now, he is admitted to the hospital, however, this time he has a slightly elevated white blood count of 13,000, along with gram-positive cocci in his blood. Another issue is elevated liver function tests, having a bilirubin of 7.4, AST 5.3, ALT 227, alkaline phosphatase of 556, and a direct bilirubin of 4.8. He is also having thrombocytopenia with a platelet count of 20,000. This is the first time that he has had significant elevation in his liver function tests. The rest of the history is unable to be obtained as the patient is noncommunicative. The information is gained from the chart. PAST MEDICAL HISTORY: 1. Hypertension. 2. Diabetes. 3. Endstage renal disease on hemodialysis. 4. Chronic hepatitis C. 5. Dementia. 6. Depression. 7. Anemia. PAST SURGICAL HISTORY: 1. Appendectomy. 2. Tonsillectomy. 3. Dialysis access placement. HABITS: The patient has not had any smoking or alcohol use. The patient has a sister who is his healthcare decision-maker. FAMILY HISTORY: Coronary artery disease, stroke, hypertension. MEDICATIONS AT HOME: 1. Diltiazem. 2. Lisinopril. 3. Amlodipine. 4. Insulin. 5. Renvela. ALLERGIES TO MEDICATIONS: NO KNOWN. REVIEW OF SYSTEMS: Unable to be obtained due to patient having dementia. PHYSICAL EXAMINATION: VITAL SIGNS: Temperature is 98.4. Pulse 87. Blood pressure 113/73. GENERAL: Patient is lying in bed. He is awake, but does not respond. HEART: Regular. LUNGS: Clear. ABDOMEN: Some distention. EXTREMITIES: Edema. NEUROLOGIC: Unable to perform due to his altered mental status. DIAGNOSTIC DATA: Sodium 133, creatinine 7.69, total bilirubin 7.4, direct 4.8, AST 523, ALT 227, alkaline phosphatase 556. White blood cell count of 14,000, hemoglobin 8.3, platelets of 24,000. ASSESSMENT: 1. Recent ultrasound showing thickening of gallbladder wall and END OF DICTATION DICTATING PHYSICIAN: DELVIS POWERS M.D. [id number] PHY#: [id number] ID: [id number] JOB#: [id number] ACCT: [id number] cc:DELVIS POWERS M.D. >
== END 2016-11-16 13:50 | disposition short-term general hospital (02) | DRG 871 ==
LOC: ER 09:49 → EH 14:58 → ICU 16:40
PROVIDERS: ADMIT Emergency Medicine; ATTEND Emergency Medicine
PROC: 5A1D00Z (ICD-10-PCS; 2016-11-15)
PROC: 30233R1 Transfusion of Nonautologous Platelets into Peripheral Vein, Percutaneous Approach (ICD-10-PCS; principal; 2016-11-16)
PROC: 06HM33Z Insertion of Infusion Device into Right Femoral Vein, Percutaneous Approach (ICD-10-PCS; 2016-11-16)
PROC: B54BZZA Ultrasonography of Right Lower Extremity Veins, Guidance (ICD-10-PCS; 2016-11-16)
DX: A41.9 Sepsis, unspecified organism (principal); N18.6 End stage renal disease; D65 Disseminated intravascular coagulation [defibrination syndrome]; E87.1 Hypo-osmolality and hyponatremia; K81.0 Acute cholecystitis; I12.0 Hypertensive chronic kidney disease with stage 5 chronic kidney disease or end stage renal disease; I38 Endocarditis, valve unspecified; B19.10 Unspecified viral hepatitis B without hepatic coma; R17 Unspecified jaundice; E86.0 Dehydration; K81.1 Chronic cholecystitis; E11.22 Type 2 diabetes mellitus with diabetic chronic kidney disease; D69.6 Thrombocytopenia, unspecified; B19.20 Unspecified viral hepatitis C without hepatic coma; D63.1 Anemia in chronic kidney disease; F17.210 Nicotine dependence, cigarettes, uncomplicated; Z99.2 Dependence on renal dialysis
CPT/HCPCS: 36415; 36430; 36556; 70450; 71010; 74181; 76705; 76937; 80053; 82140; 82550; 82553; 82962; 83605; 83690; 83735; 84100; 84443; 84484; 85025; 85362; 85379; 85384; 85610; 85730; 86900; 86901; 87040; 87075; 87077; 87186; 93005; 93010; 93306; 99291; J0696; J1815; J2270; J2543; J3370; J3490; J7030; J7040; J7060; P9035; Q4081